=== PATIENT | female | born 1960 | race Caucasian/White ===

== ENCOUNTER 2017-11-29 13:19 | Emergency (ER) | payer BC, SELFPAY ==
[2017-11-29 13:26] VITALS: BP 108/59; PULSE 62; RESP 14; TEMP 36.3; O2SAT 94
[2017-11-29 13:44] LABS: RBC Urine None Seen (0-5/HPF)
[2017-11-29 13:54] LABS: Bacteria Urine Few (2-10); Culture Indicated Urine Specimen Cultured; Squamous Epithelial Cell Urine 1-5 /HPF; WBC Urine 10-30/HPF (0-5/HPF)
--- NOTE | 2017-11-29 14:17 | PC.NURSE ---
Reports with urination that she doesn't empty completely.
--- NOTE | 2017-11-29 14:18 | ED_ITS ---
HPI - Female Genitourinary <MARC Triplett - Last Filed: 11/29/17 21:50> General Chief complaint: Urogenital-Female Stated complaint: kidney infection Time Seen by Provider: 11/29/17 14:17 Source: patient Mode of arrival: ambulatory Limitations: no limitations History of Present Illness HPI Narrative: 57-year-old female here for complaint of having increased urinary frequency and urgency over the past week. She also reports she has some right flank pain. She thinks she may have had a low-grade fever over the past couple of days. She denies any dysuria. She reports she had 1 episode of vomiting yesterday. No abdominal pain. Positive p.o. intake. She denies any other concerns or complaints at this time. MD Complaint: UTI Related Data Home Medications Medication Instructions Recorded Confirmed atorvastatin 20 mg PO DAILY 11/29/17 11/29/17 sertraline [Zoloft] 100 mg PO DAILY 11/29/17 11/29/17 Previous Rx's Medication Instructions Recorded cephalexin 500 mg PO Q12H #14 cap 11/29/17 Allergies Allergy/AdvReac Type Severity Reaction Status Date / Time Miconazole AdvReac Unknown Uncoded 07/26/17 12:07 Review of Systems <MARC Triplett - Last Filed: 11/29/17 21:50> Constitutional Denies chills, Reports fever(s), Denies lethargy and Denies weakness Eyes Denies change in vision, Denies eye discharge, Denies irritation and Denies loss of vision ENT Ears, Nose, Mouth, and Throat: Denies change in voice, Denies neck pain and Denies sore throat Cardiovascular Denies chest pain, Denies irregular heart rhythm, Denies lightheadedness, Denies palpitations, Denies dyspnea, Denies dyspnea on exertion and Denies orthopnea Respiratory Denies cough, Denies dyspnea, Denies dyspnea on exertion and Denies wheezing Gastrointestinal Gastrointestinal: Denies abdominal pain, Denies change in bowel habits, Denies diarrhea, Denies nausea and Denies vomiting Genitourinary Reports urinary frequency and Reports urinary urgency Musculoskeletal Denies neck pain Integumentary/Breasts Denies pruritus, Denies erythema, Denies rash and Denies wounds Neurologic Denies confusion, Denies loss of vision and Denies weakness Psychiatric Denies anxiety, Denies confusion, Denies depression, Denies homicidal ideation and Denies suicidal ideation Endocrine Denies palpitations Hematologic/Lymphatic Denies easy bruising Allergic/Immunologic Denies wheezing Exam <MARC Triplett - Last Filed: 11/29/17 21:50> Initial Vital Signs Initial Vital Signs: Vital Signs Temperature 97.3 F L 11/29/17 13:26 Pulse Rate 62 11/29/17 13:26 Respiratory Rate 14 11/29/17 13:26 Blood Pressure 108/59 L 11/29/17 13:26 Pulse Oximetry 94 11/29/17 13:26 Const General: cooperative and well developed Nutritional Appearance: well nourished Orientation: alert, awake, oriented x3 and not confused HENMT Mouth: oral mucosae normal and moist mucous membranes Eyes Conjunctivae: conjunctivae normal Sclera: sclerae normal Pupils: PERRL EOM: EOM intact bilaterally Resp Effort & Inspection: normal respiratory effort, able to speak in complete sentences, no respiratory distress and no use of accessory muscles Auscultation: clear to auscultation bilaterally, no rales, no rhonchi and no wheezes Cardio Rate: regular rate Rhythm: regular rhythm Heart Sounds: no click, no gallops, no murmurs and no rubs GI Inspection: non-distended Palpation: soft, no hepatosplenomegaly, No guarding, No pulsatile mass and tender Auscultation: normal bowel sounds Other: Tender to the suprapubic region General: No CVA tenderness Skin General: no rashes or lesions noted, No jaundice and No petechiae Neuro General: alert, oriented x3, gait normal and no focal motor deficits Speech: speech normal <Joe Arechiga DO - Last Filed: 11/29/17 22:15> Initial Vital Signs Initial Vital Signs: Vital Signs Temperature 97.3 F L 11/29/17 13:26 Pulse Rate 62 11/29/17 13:26 Respiratory Rate 14 11/29/17 13:26 Blood Pressure 108/59 L 11/29/17 13:26 Pulse Oximetry 94 11/29/17 13:26 Course <MARC Triplett - Last Filed: 11/29/17 21:50> Orders Ordered: ED Orders 11/29/17 13:35 Urine Culture Stat Urine Microscopic Stat Vital Signs - 8 hr 11/29/17 14:45 Pulse Rate 57 L Respiratory Rate 20 Blood Pressure [Left Arm] 115/57 L Pulse Oximetry 97 <Joe Arechiga DO - Last Filed: 11/29/17 22:15> Orders Ordered: ED Orders 11/29/17 13:35 Urine Culture Stat Urine Microscopic Stat Vital Signs - 8 hr 11/29/17 14:45 Pulse Rate 57 L Respiratory Rate 20 Blood Pressure [Left Arm] 115/57 L Pulse Oximetry 97 MDM - Female Genitourinary <MARC Triplett - Last Filed: 11/29/17 21:50> Lab Data Lab Results 11/29/17 Range/Units 13:35 Urine RBC None seen (0-5/HPF) Urine WBC 10-30/hpf H (0-5/HPF) Ur Squamous Epith Cells 1-5 /hpf Urine Bacteria Few (2-10) H (None) Ur Culture Indicated? Specimen cultured Micro UA Comment Not Reportable MDM Narrative Medical decision making narrative: Urinalysis was positive for urinary tract infection. Due to subjective report of low-grade fever and flank pain will cover for starting pyelonephritis. She is placed on Keflex. Urine culture is pending. Follow up with primary care in the next couple days for re- evaluation. Plenty of fluids. For any worsening symptoms return to the emergency room. <Joe Arechiga DO - Last Filed: 11/29/17 22:15> Lab Data Lab Results 11/29/17 Range/Units 13:35 Urine RBC None seen (0-5/HPF) Urine WBC 10-30/hpf H (0-5/HPF) Ur Squamous Epith Cells 1-5 /hpf Urine Bacteria Few (2-10) H (None) Ur Culture Indicated? Specimen cultured Micro UA Comment Not Reportable Discharge Plan Departure Patient Disposition: Home, Self-Care Clinical Impression: Urinary tract infection Discharge Date/Time: 11/29/17 14:57 Interventions: ED Discharge Assessment Last Done: 11/29/17 14:57 Instructions: DI for Urinary Tract Infection (UTI) Activity Restrictions/Additional Instructions: Urinalysis is positive for urinary tract infection. You are placed on antibiotic called Keflex to cover for starting kidney infection use as directed. Plenty of fluids. [id number] Tylenol and/or Motrin as needed for any discomfort. Follow up with her primary care provider in the next couple days for re-evaluation. For any worsening symptoms return to the emergency room. Prescriptions: New cephalexin 500 mg capsule 500 mg PO Q12H Qty: 14 RF: 0 No Action atorvastatin 20 mg Tablet 20 mg PO DAILY RF: 0 sertraline [Zoloft] 100 mg Tablet 100 mg PO DAILY RF: 0 Referrals: [facility] [Provider Group] <Joe Arechiga DO - Last Filed: 11/29/17 22:15> Cosign ED Attending Mireya Attestation: I was available for consultation during this patient's emergency department encounter
[2017-11-29 14:45] VITALS: BP 115/57; PULSE 57; RESP 20; O2SAT 97
== END 2017-11-29 14:57 | disposition home or self-care (01) ==
PROVIDERS: Emergency Provider Nurse Practitioner Family
DX: N39.0 Urinary tract infection, site not specified (principal)
CPT/HCPCS: 81003; 81015; 87086; 99282

== ENCOUNTER 2018-06-28 15:29 | Emergency (ER) | payer OTHER, SELFPAY ==
[2018-06-28 15:32] VITALS: BP 130/64; PULSE 65; RESP 15; TEMP 36.9; O2SAT 96; BMI 43.7
--- NOTE | 2018-06-28 15:43 | ED.NAVMDI ---
HPI - Nausea/Vomiting/Diarrhea <MARC Triplett - Last Filed: 06/28/18 22:20> General Chief complaint: Nausea/Vomiting/Diarrhea Stated complaint: DIARRHEA, ABDOMINAL CRAMPING Time Seen by Provider: 06/28/18 15:42 Source: patient Mode of arrival: ambulatory Limitations: no limitations History of Present Illness HPI Narrative: 58-year-old female with history of depression and is a nonsmoker here for complaint of having abdominal pain into the lower abdomen bilateral signs for the last couple of days. She has also had some nausea and some diarrhea. She has been tolerating p.o. intake. No fevers no chills. She denies any stressors or relievers or symptoms. No trauma to abdomen. She denies any urinary symptoms. Last bowel movement was earlier today and was loose. She denies any contacts with similar symptoms. No other concerns or complaints at this timeframe. No flank pain. Related Data Home Medications Medication Instructions Recorded Confirmed atorvastatin 20 mg PO DAILY 11/29/17 11/29/17 sertraline [Zoloft] 100 mg PO DAILY 11/29/17 06/28/18 trazodone 100 mg PO DAILY 06/28/18 06/28/18 Previous Rx's Medication Instructions Recorded levofloxacin 750 mg PO DAILY #7 tab 06/28/18 Allergies Allergy/AdvReac Type Severity Reaction Status Date / Time No Known Drug Allergies Allergy Verified 06/28/18 15:32 Review of Systems <MARC Triplett - Last Filed: 06/28/18 22:20> Constitutional Denies chills, Denies fever(s), Denies lethargy and Denies weakness Eyes Denies change in vision, Denies eye discharge, Denies irritation and Denies loss of vision ENT Ears, Nose, Mouth, and Throat: Denies change in voice, Denies neck pain and Denies sore throat Cardiovascular Denies chest pain, Denies irregular heart rhythm, Denies lightheadedness, Denies palpitations, Denies dyspnea, Denies dyspnea on exertion and Denies orthopnea Respiratory Denies cough, Denies dyspnea, Denies dyspnea on exertion and Denies wheezing Gastrointestinal Gastrointestinal: Reports abdominal pain, Reports diarrhea and Reports nausea Genitourinary Denies hematuria, Denies flank pain, Denies urinary incontinence and Denies urinary urgency Musculoskeletal Denies neck pain Integumentary/Breasts Denies pruritus, Denies erythema, Denies rash and Denies wounds Neurologic Denies confusion, Denies loss of vision and Denies weakness Psychiatric Denies anxiety, Denies confusion, Denies depression, Denies homicidal ideation and Denies suicidal ideation Endocrine Denies palpitations Allergic/Immunologic Denies wheezing PFSH <MARC Triplett - Last Filed: 06/28/18 22:20> Medical History Hypercholesterolemia (Acute) Social History Smoking Status: Former smoker Exam <MARC Triplett - Last Filed: 06/28/18 22:20> Initial Vital Signs Initial Vital Signs: Vital Signs Temperature 98.5 F 06/28/18 15:32 Pulse Rate 65 06/28/18 15:32 Respiratory Rate 15 06/28/18 15:32 Blood Pressure 130/64 06/28/18 15:32 Pulse Oximetry 96 06/28/18 15:32 Const General: cooperative and well developed Nutritional Appearance: well nourished Orientation: alert, awake, oriented x3 and not confused HENDE Mouth: oral mucosae normal and moist mucous membranes Throat: posterior oropharynx normal Eyes Conjunctivae: conjunctivae normal Sclera: sclerae normal Pupils: PERRL EOM: EOM intact bilaterally Cardio Rate: regular rate Rhythm: regular rhythm Heart Sounds: no click, no gallops, no murmurs and no rubs Pulses: normal peripheral pulses GI Inspection: non-distended Palpation: soft, no hepatosplenomegaly, No guarding, No pulsatile mass and tender Auscultation: normal bowel sounds Other: Tenderness on palpation to right lower quadrant with some pain also to the left lower quadrant. General: No CVA tenderness Neuro General: alert, oriented x3, gait normal and no focal motor deficits Speech: speech normal <Joe Arechiga DO - Last Filed: 07/02/18 18:44> Initial Vital Signs Initial Vital Signs: Vital Signs Temperature 98.5 F 06/28/18 15:32 Pulse Rate 65 06/28/18 15:32 Respiratory Rate 15 06/28/18 15:32 Blood Pressure 130/64 06/28/18 15:32 Pulse Oximetry 96 06/28/18 15:32 Course <MARC Triplett - Last Filed: 06/28/18 22:20> Orders Ordered: Discontinued Medications Hydromorphone HCl (Dilaudid) 0.5 mg IV NOW ONE Stop: 06/28/18 16:02 Last Admin: 06/28/18 17:15 Dose: 0.5 mg Sodium Chloride (Normal Saline 0.9%) 1,000 mls @ 1,000 mls/hr IV BOLUS ONE Stop: 06/28/18 17:00 Last Infusion: 06/28/18 19:28 Dose: 1,000 mls/hr Admin: 06/28/18 17:15 Dose: 1,000 mls/hr Ondansetron HCl (Zofran) 4 mg IV NOW ONE Stop: 06/28/18 16:02 Last Admin: 06/28/18 17:15 Dose: 4 mg Vital Signs - 8 hr 06/28/18 15:32 06/28/18 18:11 06/28/18 20:12 Temperature 98.5 F 98.1 F Pulse Rate 65 62 54 L Respiratory Rate 15 18 16 Blood Pressure 130/64 Blood Pressure [Right Arm] 124/43 L 91/67 Pulse Oximetry 96 94 94 <Joe Arechiga DO - Last Filed: 07/02/18 18:44> Orders Ordered: Discontinued Medications Hydromorphone HCl (Dilaudid) 0.5 mg IV NOW ONE Stop: 06/28/18 16:02 Last Admin: 06/28/18 17:15 Dose: 0.5 mg Sodium Chloride (Normal Saline 0.9%) 1,000 mls @ 1,000 mls/hr IV BOLUS ONE Stop: 06/28/18 17:00 Last Infusion: 06/28/18 19:28 Dose: 1,000 mls/hr Admin: 06/28/18 17:15 Dose: 1,000 mls/hr Ondansetron HCl (Zofran) 4 mg IV NOW ONE Stop: 06/28/18 16:02 Last Admin: 06/28/18 17:15 Dose: 4 mg Vital Signs - 8 hr 06/28/18 15:32 06/28/18 18:11 06/28/18 20:12 Temperature 98.5 F 98.1 F Pulse Rate 65 62 54 L Respiratory Rate 15 18 16 Blood Pressure 130/64 Blood Pressure [Right Arm] 124/43 L 91/67 Pulse Oximetry 96 94 94 MDM - Nausea/Vomiting/Diarrhea <MARC Triplett - Last Filed: 06/28/18 22:20> Lab Data Result diagrams: 06/28/18 17:00 06/28/18 17:00 Lab Results 06/28/18 06/28/18 06/28/18 Range/Units 17:00 17:00 18:47 WBC 10.2 (4.5-11.0) X10^3/uL RBC 4.65 (4.0-5.2) X10^6/uL Hgb 13.8 (12.0-16.0) g/dL Hct 42.4 (36-46) % MCV 91.1 (80-100) fL MCH 29.6 (26-34) PG MCHC 32.5 (30-36) % RDW 14.6 (11.6-14.8) % Plt Count 217 (150-400) X10^3/uL Neut % (Auto) 67.5 (50-75) % Lymph % (Auto) 23.5 L (25-40) % [place] % (Auto) 5.6 (3-14) % Eos % (Auto) 2.7 (2-4) % Baso % (Auto) 0.7 (0-2) % Neut # (Auto) 6900 (1584-8259) /uL Lymph # (Auto) 2400 (2891-4689) /uL [place] # (Auto) 600 (0-900) /uL Eos # (Auto) 300 (0-450) /uL Baso # (Auto) 100 (0-100) /uL Sodium 141 (137-145) mmol/L Potassium 4.1 (3.4-5.1) mmol/L Chloride 106 (98-107) mmol/L Carbon Dioxide 25 (22-32) mmol/L BUN 21 H (7-17) mg/dL Creatinine 0.80 (0.52-1.04) mg/dL Estimated GFR > 60.0 (>60) mL/min BUN/Creatinine Ratio 26.3 H (6-22) Glucose 113 H (70-100) mg/dL Calcium 8.3 L (8.4-10.2) mg/dL Total Bilirubin 0.3 (0.2-1.3) mg/dL AST 29 (14-36) IU/L ALT 39 (9-52) IU/L Alkaline Phosphatase 89 (38-126) U/L Total Protein 7.5 (6.3-8.2) g/dL Albumin 4.1 (3.5-5.0) g/dL Globulin 3.4 (1.7-4.1) g/dL Albumin/Globulin Ratio 1.2 (1.0-2.8) Lipase 156 (23-300) U/L Urine RBC 1-5/hpf (0-5/HPF) Urine WBC 5-10/hpf H (0-5/HPF) Ur Squamous Epith Cells 1-5 /hpf Urine Bacteria Occasional (0-1) (None) Ur Culture Indicated? Specimen cultured Urine Dip Bedside Urine Glucose Negative Bedside Urine Bilirubin - Negative Bedside Urine Ketone - Negative Urine Specific [place] 1.015 Bedside Urine Occult Blood - Negative Bedside Urine pH 6.0 Bedside Urine Protein - Negative Bedside Urine Urobilinogen - Negative Bedside Urine Nitrite - Negative Bedside Urine Leukocytes +++ [address] scan - abdomen: Radiologist's impression: [place] [address] CT Scan Report Signed Patient: Brian Hill LMR#: [id number] : [id number]:[id number] Age/Sex: 58 / FDate of Service: 06/28/18 Loc: ED Accession Number: [id number] Procedure: CT abdomen pelvis w con Ordering Provider: Valentín Lewis PROCEDURE: CT ABDOMEN PELVIS W CON INDICATIONS: Pain right lower quadrant TECHNIQUE: After the administration of intravenous contrast, 5 mm thick sections acquired from the diaphragm to the symphysis. 5 mm coronal and sagittal reformats were acquired. For radiation dose reduction, the following was used: automated exposure control, adjustment of mA and/or kV according to patient size. COMPARISON: [facility], CT, ABDOMEN/PELVIS WITH CONTRAST, 08/28/2008, 10:56. FINDINGS: Image quality: Excellent. ABDOMEN: Lung bases: There is mild dependent atelectasis bilaterally. Heart size is normal. A small hiatal hernia is present. Solid organs: Evaluation of the liver demonstrates no focal hepatic lesions. The gallbladder surgically absent. Biliary system is mildly dilated without calcified stones. Findings may reflect sequelae of prior cholecystectomy. Pancreas enhances normally without pancreatic duct dilatation or discrete mass lesion. Spleen is normal in size and enhancement. No adrenal nodules. Kidneys demonstrate normal size and enhancement, without hydronephrosis. Peritoneum and bowel: There are postsurgical changes with multiple bowel sutures demonstrated in the abdomen status post partial resection of small and large bowel loops. Bowel loops demonstrate normal wall thickness and caliber. The appendix is surgically absent. There is colonic diverticulosis without acute diverticulitis. No free fluid or air. Nodes and vessels: No retroperitoneal or mesenteric adenopathy by size criteria. Aorta and inferior vena cava are normal in size. Miscellaneous: There is a midline ventral hernia containing multiple loops of small bowel without evidence of bowel obstruction or strangulation. The abdominal wall defect measures approximately 8.1 x 7.8 cm. PELVIS: Genitourinary: Bladder wall thickness is normal. There is a curvilinear cystic structure within the left adnexa suggestive of hydrosalpinx. This measures approximately 5.5 cm in transverse dimension by 3.3 cm in anteroposterior dimension by 2.5 cm in craniocaudal dimension. Miscellaneous: No inguinal hernias or adenopathy. Bones: No suspicious bony lesions. No vertebral body compression fractures. IMPRESSION: 1. Postsurgical changes status post prior partial bowel resection with multiple surgical sutures demonstrated in the right lower quadrant. No evidence of obstruction, anastomotic leak, or acute inflammatory changes. 2. Large ventral abdominal hernia containing multiple small bowel loops. No evidence of bowel obstruction or strangulation. 3. Colonic diverticulosis without acute diverticulitis. 4. Curvilinear cystic structure in the left adnexa suggestive of hydrosalpinx. Further evaluation may be obtained with a pelvic ultrasound if clinically indicated. Dictated by: Tiago Ortiz M.D. on 06/28/2018 at 16:59 Approved by: Tiago Ortiz M.D. on 06/28/2018 at 17:07 Pelvic ultrasound : Radiologist's impression: [address] [address] Ultrasound Report Signed Patient: Brian Hill LMR#: [id number] : 1Acct:[id number] Age/Sex: 58 / FDate of Service: 06/28/18 Loc: ED Accession Number: [id number] Procedure: US pelvic complete Ordering Provider: Valentín Lewis PROCEDURE: US PELVIC COMPLETE INDICATIONS: Pain lower abdomen TECHNIQUE: Real-time scanning was performed of the pelvic organs, with image documentation. Additional endovaginal scanning was necessary due to incomplete visualization of the adnexal and endometrial structures by transabdominal scanning. COMPARISON: None. FINDINGS: Transabdominal scanning: Limited scanning through the kidneys shows no hydronephrosis. No pathologic free abdominal or pelvic fluid. Endovaginal scanning: Uterus: Uterus is normal in size at 8.4 x 3.6 x 4.4 cm. The endometrium measures 3.0 mm in combined thickness. There is a 1.3 x 0.9 x 1.0 cm hypoechoic lesion in the lower uterine segment. No definite internal vascularity associated lesion. Lesion may represent a fibroid or small polyp, however early neoplastic process cannot be excluded. Ovaries: Adnexa not visualized and cannot be evaluated. There is a 2.6 cm tubular, cystic structure in the expected region left adnexa which may represent fluid filled loop of bowel or left fallopian tube. IMPRESSION: 1. 1.3 x 0.9 x 1.0 hypoechoic mass in the lower uterine segment. Lesion may represent small polyp or fibroid, however a neoplastic process cannot be excluded recommend gynecology consultation. 2. 2.6 cm cystic lesion with tubular contours in the expected region of left adnexa which may represent fluid filled loop of bowel or hydrosalpinx. 3. Adnexa are not definitely visualized and cannot be evaluated. Dictated by: Leticia Blanca MD, PhD on 06/28/2018 at 20:17 Approved by: Leticia Blanca MD, PhD on 06/28/2018 at 20:21 [facility] Narrative Medical decision making narrative: CT scan of the abdomen shows diverticulosis with no acute diverticulitis. The does show that there is a curved cystic structure to the left adnexa area suggestive of a hydrosalpinx with request for pelvic ultrasound. CT also showed multiple ventral abdominal hernias and containing multiple small bowel loops no evidence of bowel obstruction or strangulation was seen. Pelvic ultrasound was obtained and shows a 1.3 cm mass to the lower uterine segment which may represent polyp fibroid or neoplastic process. There is a 2.6 cm cystic lesion with 2 her contours to the left adnexa which could represent a fluid filled loop of bowel or a hydrosalpinx. She is referred to assembler adjuster for further evaluation. [id number] ibuprofen as needed for any discomfort. Differential of her abdominal pain and diarrhea May caused by a viral illness with the above findings being incidental. Plenty of fluids. Follow up with primary care provider. Urinalysis indicates urinary tract infection. She is placed on Levaquin. Follow up with assembler adjuster. Return emergency room for any worsening symptoms. <Joe Arechiga, DO - Last Filed: 07/02/18 18:44> Lab Data Lab Results 06/28/18 06/28/18 06/28/18 Range/Units 17:00 17:00 18:47 WBC 10.2 (4.5-11.0) X10^3/uL RBC 4.65 (4.0-5.2) X10^6/uL Hgb 13.8 (12.0-16.0) g/dL Hct 42.4 (36-46) % MCV 91.1 (80-100) fL MCH 29.6 (26-34) PG MCHC 32.5 (30-36) % RDW 14.6 (11.6-14.8) % Plt Count 217 (150-400) X10^3/uL Neut % (Auto) 67.5 (50-75) % Lymph % (Auto) 23.5 L (25-40) % [place] % (Auto) 5.6 (3-14) % Eos % (Auto) 2.7 (2-4) % Baso % (Auto) 0.7 (0-2) % Neut # (Auto) 6900 (9514-8766) /uL Lymph # (Auto) 2400 (8446-8032) /uL [place] # (Auto) 600 (0-900) /uL Eos # (Auto) 300 (0-450) /uL Baso # (Auto) 100 (0-100) /uL Sodium 141 (137-145) mmol/L Potassium 4.1 (3.4-5.1) mmol/L Chloride 106 (98-107) mmol/L Carbon Dioxide 25 (22-32) mmol/L BUN 21 H (7-17) mg/dL Creatinine 0.80 (0.52-1.04) mg/dL Estimated GFR > 60.0 (>60) mL/min BUN/Creatinine Ratio 26.3 H (6-22) Glucose 113 H (70-100) mg/dL Calcium 8.3 L (8.4-10.2) mg/dL Total Bilirubin 0.3 (0.2-1.3) mg/dL AST 29 (14-36) IU/L ALT 39 (9-52) IU/L Alkaline Phosphatase 89 (38-126) U/L Total Protein 7.5 (6.3-8.2) g/dL Albumin 4.1 (3.5-5.0) g/dL Globulin 3.4 (1.7-4.1) g/dL Albumin/Globulin Ratio 1.2 (1.0-2.8) Lipase 156 (23-300) U/L Urine RBC 1-5/hpf (0-5/HPF) Urine WBC 5-10/hpf H (0-5/HPF) Ur Squamous Epith Cells 1-5 /hpf Urine Bacteria Occasional (0-1) (None) Ur Culture Indicated? Specimen cultured Urine Dip Bedside Urine Glucose Negative Bedside Urine Bilirubin - Negative Bedside Urine Ketone - Negative Urine Specific [place] 1.015 Bedside Urine Occult Blood - Negative Bedside Urine pH 6.0 Bedside Urine Protein - Negative Bedside Urine Urobilinogen - Negative Bedside Urine Nitrite - Negative Bedside Urine Leukocytes +++ 500 Esterase Discharge Plan Departure Patient Disposition: Home Clinical Impression: Abdominal pain Qualifiers: Abdominal location: generalized Qualified Code(s): R10.84 - Generalized abdominal pain Urinary tract infection Qualifiers: Urinary tract infection type: acute cystitis Hematuria presence: with hematuria Qualified Code(s): N30.01 - Acute cystitis with hematuria Discharge Date/Time: 06/28/18 20:14 Interventions: ED Discharge Assessment Last Done: 06/28/18 20:18 Instructions: DI for Abdominal Pain-Adult Activity Restrictions/Additional Instructions: CT of the abdomen was obtained and shows ventral hernias containing small bowel loops with no signs of strangulation. CT also shows mass to the left ovary area. Pelvic ultrasound was then obtained to for further look and shows a 1 cm mass to the lower uterine segment that could be a fibroid or small polyp however worst case scenario may be cancer. Recommend close follow-up with assembler adjuster for further evaluation. Ultrasound was not able to visualize the left ovarian area well so was not able to further identify the tubular the mass to the left ovarian area may represent a fluid filled loop of bowel or some swelling to the left ovary. Again follow up with assembler adjuster. Differential diagnosis of her diarrhea and abdominal pain may be due to viral causes and the the above are incidental findings or maybe director responsible for your abdominal pain. Urinalysis indicates urinary tract infection UR placed on antibiotic called levofloxacin use as directed. Use [id number] ibuprofen as needed for any discomfort. Follow up with her primary care provider. Prescriptions: New levofloxacin 750 mg tablet 750 mg PO DAILY Qty: 7 RF: 0 No Action atorvastatin 20 mg Tablet 20 mg PO DAILY RF: 0 sertraline [Zoloft] 100 mg Tablet 100 mg PO DAILY RF: 0 trazodone 100 mg Tablet 100 mg PO DAILY RF: 0 Referrals: Blane Auguste MD [Physician] - <Joe Arechiga DO - Last Filed: 07/02/18 18:44> Cosign ED Attending Mireya Attestation: I was available for consultation during this patient's emergency department encounter
--- NOTE | 2018-06-28 16:02 | DI.CT.S_ITS ---
PROCEDURE: CT ABDOMEN PELVIS W CON INDICATIONS: Pain right lower quadrant TECHNIQUE: After the administration of intravenous contrast, 5 mm thick sections acquired from the diaphragm to the symphysis. 5 mm coronal and sagittal reformats were acquired. For radiation dose reduction, the following was used: automated exposure control, adjustment of mA and/or kV according to patient size. COMPARISON: [facility], CT, ABDOMEN/PELVIS WITH CONTRAST, 08/28/2008, 10:56. FINDINGS: Image quality: Excellent. ABDOMEN: Lung bases: There is mild dependent atelectasis bilaterally. Heart size is normal. A small hiatal hernia is present. Solid organs: Evaluation of the liver demonstrates no focal hepatic lesions. The gallbladder surgically absent. Biliary system is mildly dilated without calcified stones. Findings may reflect sequelae of prior cholecystectomy. Pancreas enhances normally without pancreatic duct dilatation or discrete mass lesion. Spleen is normal in size and enhancement. No adrenal nodules. Kidneys demonstrate normal size and enhancement, without hydronephrosis. Peritoneum and bowel: There are postsurgical changes with multiple bowel sutures demonstrated in the abdomen status post partial resection of small and large bowel loops. Bowel loops demonstrate normal wall thickness and caliber. The appendix is surgically absent. There is colonic diverticulosis without acute diverticulitis. No free fluid or air. Nodes and vessels: No retroperitoneal or mesenteric adenopathy by size criteria. Aorta and inferior vena cava are normal in size. Miscellaneous: There is a midline ventral hernia containing multiple loops of small bowel without evidence of bowel obstruction or strangulation. The abdominal wall defect measures approximately 8.1 x 7.8 cm. PELVIS: Genitourinary: Bladder wall thickness is normal. There is a curvilinear cystic structure within the left adnexa suggestive of hydrosalpinx. This measures approximately 5.5 cm in transverse dimension by 3.3 cm in anteroposterior dimension by 2.5 cm in craniocaudal dimension. Miscellaneous: No inguinal hernias or adenopathy. Bones: No suspicious bony lesions. No vertebral body compression fractures. IMPRESSION: 1. Postsurgical changes status post prior partial bowel resection with multiple surgical sutures demonstrated in the right lower quadrant. No evidence of obstruction, anastomotic leak, or acute inflammatory changes. 2. Large ventral abdominal hernia containing multiple small bowel loops. No evidence of bowel obstruction or strangulation. 3. Colonic diverticulosis without acute diverticulitis. 4. Curvilinear cystic structure in the left adnexa suggestive of hydrosalpinx. Further evaluation may be obtained with a pelvic ultrasound if clinically indicated. Dictated by: Tiago Ortiz M.D. on 06/28/2018 at 16:59 Approved by: Tiago Ortiz M.D. on 06/28/2018 at 17:07
[2018-06-28 17:12] LABS: Add Manual Diff / Slide Review NO; Basophils Absolute Auto 100 /uL (0-100); Basophils Percent Auto 0.7 % (0-2); Eosinophils Absolute Auto 300 /uL (0-450); Eosinophils Percent Auto 2.7 % (2-4); Hematocrit 42.4 % (36-46); Hemoglobin 13.8 g/dL (12.0-16.0); Lymphocytes Absolute Auto 2400 /uL (1100-4500); Lymphocytes Percent Auto 23.5 % (25-40); Mean Corpuscular HGB Conc 32.5 % (30-36); Mean Corpuscular Hemoglobin 29.6 PG (26-34); Mean Corpuscular Volume 91.1 fL (80-100); Monocytes Absolute Auto 600 /uL (0-900); Monocytes Percent Auto 5.6 % (3-14); Neutrophils Absolute Auto 6900 /uL (1500-7000); Neutrophils Percent Auto 67.5 % (50-75); Platelet Count 217 X10^3/uL (150-400); Red Blood Cell Count 4.65 X10^6/uL (4.0-5.2); Red Cell Distribution Width 14.6 % (11.6-14.8); White Blood Cell Count 10.2 X10^3/uL (4.5-11.0)
[2018-06-28] MEDS: HYDROMORPHONE 1 MG INJ 0.5 MG IV (17:15)
[2018-06-28] MEDS: SODIUM CHLORIDE 0.9% 1,000 ML 1000 ML IV (17:15)
[2018-06-28] MEDS: ONDANSETRON 4 MG/2 ML INJ IV (17:15)
[2018-06-28 17:28] LABS: Alanine Aminotransferase 39 IU/L (9-52); Albumin 4.1 g/dL (3.5-5.0); Albumin Globulin Ratio 1.2 (1.0-2.8); Alkaline Phosphatase 89 U/L (38-126); Aspartate Aminotransferase 29 IU/L (14-36); BUN Creatinine Ratio 26.3 (6-22); Bilirubin Total 0.3 mg/dL (0.2-1.3); Blood Urea Nitrogen 21 mg/dL (7-17); Calcium 8.3 mg/dL (8.4-10.2); Carbon Dioxide 25 mmol/L (22-32); Chloride 106 mmol/L (98-107); Estimated Glomerular Filt Rate > 60.0 mL/min (>60); Globulin 3.4 g/dL (1.7-4.1); Glucose 113 mg/dL (70-100); HEMOLYSIS 20 (0-50); Lipase 156 U/L (23-300); Potassium 4.1 mmol/L (3.4-5.1); Sodium 141 mmol/L (137-145); Total Protein 7.5 g/dL (6.3-8.2)
--- NOTE | 2018-06-28 18:09 | PC.NURSE ---
pt reports, diarrhea for 2 days, 3 episodes in the last 24 hours, low fever, unmeasured at home, felt cold and almost narcoleptic, with nausea, no vomiting, with indigestions. denies trauma , denies traveling outside [place] denies antibiotics treatment. hx of diverticulitis, with altaf drain and ostomy, reversed. cholecystectomy.
[2018-06-28 18:11] VITALS: BP 124/43; PULSE 62; RESP 18; O2SAT 94
--- NOTE | 2018-06-28 18:13 | DI.US.S_ITS ---
PROCEDURE: US PELVIC COMPLETE INDICATIONS: Pain lower abdomen TECHNIQUE: Real-time scanning was performed of the pelvic organs, with image documentation. Additional endovaginal scanning was necessary due to incomplete visualization of the adnexal and endometrial structures by transabdominal scanning. COMPARISON: None. FINDINGS: Transabdominal scanning: Limited scanning through the kidneys shows no hydronephrosis. No pathologic free abdominal or pelvic fluid. Endovaginal scanning: Uterus: Uterus is normal in size at 8.4 x 3.6 x 4.4 cm. The endometrium measures 3.0 mm in combined thickness. There is a 1.3 x 0.9 x 1.0 cm hypoechoic lesion in the lower uterine segment. No definite internal vascularity associated lesion. Lesion may represent a fibroid or small polyp, however early neoplastic process cannot be excluded. Ovaries: Adnexa not visualized and cannot be evaluated. There is a 2.6 cm tubular, cystic structure in the expected region left adnexa which may represent fluid filled loop of bowel or left fallopian tube. IMPRESSION: 1. 1.3 x 0.9 x 1.0 hypoechoic mass in the lower uterine segment. Lesion may represent small polyp or fibroid, however a neoplastic process cannot be excluded recommend gynecology consultation. 2. 2.6 cm cystic lesion with tubular contours in the expected region of left adnexa which may represent fluid filled loop of bowel or hydrosalpinx. 3. Adnexa are not definitely visualized and cannot be evaluated. Dictated by: Leticia Blanca MD, PhD on 06/28/2018 at 20:17 Approved by: Leticia Blanca MD, PhD on 06/28/2018 at 20:21
[2018-06-28 19:26] LABS: Bacteria Urine Occasional (0-1); Culture Indicated Urine Specimen Cultured; RBC Urine 1-5/HPF (0-5/HPF); Squamous Epithelial Cell Urine 1-5 /HPF; WBC Urine 5-10/HPF (0-5/HPF)
[2018-06-28 20:12] VITALS: BP 91/67; PULSE 54; RESP 16; TEMP 36.7; O2SAT 94
== END 2018-06-28 20:14 | disposition home or self-care (01) ==
PROVIDERS: Emergency Provider Nurse Practitioner Family
DX: R10.84 Generalized abdominal pain (principal); N30.01 Acute cystitis with hematuria
CPT/HCPCS: 36591; 74177; 76830; 76856; 80053; 81003; 81015; 83690; 85025; 87086; 96361; 96374; 96375; 99283; 99285; J1170; J2405

== ENCOUNTER → 2018-07-10 09:47 | Outpatient (CLI) | payer OTHER, SELFPAY ==
[2018-07-10 12:00] LABS: Cancer Antigen 125 < 6 U/mL (0-35)
== END ==
LOC: LAB 09:48
PROVIDERS: PCP Physician Assistant; Visit Provider Obstetrics & Gynecology
DX: N94.9 Unspecified condition associated with female genital organs and menstrual cycle (principal)
CPT/HCPCS: 36415; 86304

== ENCOUNTER 2018-07-27 20:47 | Emergency (ER) | payer OTHER, SELFPAY ==
[2018-07-27 20:50] VITALS: BP 144/79; PULSE 64; RESP 18; TEMP 36.6; O2SAT 98
--- NOTE | 2018-07-27 20:54 | ED_ITS ---
HPI - Female Genitourinary <Julieta Sparks PA-C - Last Filed: 07/28/18 15:19> General Chief complaint: Urogenital-Female Stated complaint: Kidney infection Time Seen by Provider: 07/27/18 20:50 Source: patient Mode of arrival: ambulatory Limitations: no limitations History of Present Illness HPI Narrative: This 58-year-old female comes in due to concern for recurrent kidney infection. She states that she has had these in the past and this feels similar. She states she has not had any urinary burning, frequency, urgency, or hematuria, however she has had increasing right flank pain (she has some chronic pain there but worse in the last few days), along with nausea. She states that she has not had fever or vomiting. Her urine has looked somewhat cloudy. She states this presents similarly to previous kidney infections and wants to make sure she gets this treated early as she does have bariatric surgery scheduled. She was treated here about a month ago with Levaquin and does not feel like symptoms quite fully resolved. Related Data Home Medications Medication Instructions Recorded Confirmed atorvastatin 20 mg PO DAILY 11/29/17 11/29/17 sertraline [Zoloft] 100 mg PO DAILY 11/29/17 06/28/18 trazodone 100 mg PO DAILY 06/28/18 06/28/18 Previous Rx's Medication Instructions Recorded levofloxacin 750 mg PO DAILY #7 tab 06/28/18 lidocaine [Lidoderm] 2 patch TOP Q24H #30 each 07/27/18 Allergies Allergy/AdvReac Type Severity Reaction Status Date / Time levofloxacin AdvReac Severe Agitated Verified 07/27/18 20:53 miconazole [From Monistat 7] AdvReac rash Verified 07/10/18 09:06 Review of Systems <Julieta Sparks PA-C - Last Filed: 07/28/18 15:19> Review of Systems ROS Unobtainable: All systems reviewed & are unremarkable except as noted in HPI and below PFSH <Julieta Sparks PA-C - Last Filed: 07/28/18 15:19> Medical History (Updated 07/27/18 @ 21:50 by Julieta Sparks PA-C) Hypercholesterolemia (Chronic) Depression (Chronic) Status post tubal ligation (Resolved) Surgical History (Updated 07/27/18 @ 21:08 by Julieta Sparks PA-C) Perforated diverticulum (Resolved) Status post cholecystectomy (Resolved) Status post colon resection (Resolved) Social History Smoking Status: Former smoker Social History Smoking Status: Former smoker Exam <Julieta Sparks PA-C - Last Filed: 07/28/18 15:19> Narrative Exam Narrative: GENERAL APPEARANCE: Patient sitting comfortably, in no distress. LUNGS: Clear to auscultation bilaterally. HEART: Rate and rhythm regular without murmur, normal S1 and S2, no S3 or S4. ABDOMEN: Soft, ND, +BS x 4 quadrants, no CVAT. mild tenderness along the right upper quadrant, more tenderness at the right flank/CVA, no tenderness elsewhere. No guarding or rebound DERMATOLOGIC: No exanthem Initial Vital Signs Initial Vital Signs: Vital Signs Temperature 97.8 F 07/27/18 20:50 Pulse Rate 64 07/27/18 20:50 Respiratory Rate 18 07/27/18 20:50 Blood Pressure 144/79 H 07/27/18 20:50 Pulse Oximetry 98 07/27/18 20:50 <Whitney Olson DO - Last Filed: 08/01/18 19:32> Initial Vital Signs Initial Vital Signs: Vital Signs Temperature 97.8 F 07/27/18 20:50 Pulse Rate 64 07/27/18 20:50 Respiratory Rate 18 07/27/18 20:50 Blood Pressure 144/79 H 07/27/18 20:50 Pulse Oximetry 98 07/27/18 20:50 Course <Julieta Sparks PA-C - Last Filed: 07/28/18 15:19> Additional Information: Reviewed findings with patient. She had the symptoms last month when she had imaging studies done. She states that she does not feel particularly poorly today, was just convince that she had a kidney infection which is not resolving. Review lab and urine findings with her and in discussion with her, she states that she does have sciatica, and we discussed that this could be potentially musculoskeletal pain related to that. After discussion she prefers outpatient follow-up and will see her PCP next week to talk about further studies and potential referral. Over the weekend will try anti-inflammatory as well as muscle relaxant if needed to see if this is helpful and related to her PCP. She agreed to return if any acutely worsening symptoms in the interim. Orders Ordered: Discontinued Medications Hydrocodone Bitart/Acetaminophen (Vicodin Prepack) 1 bottle MISC SEEINSTR ONE Stop: 07/27/18 21:51 Last Admin: 07/27/18 22:08 Dose: 1 bottle Ketorolac Tromethamine (Toradol) 60 mg IM NOW ONE Stop: 07/27/18 21:27 Last Admin: 07/27/18 21:37 Dose: 60 mg Ondansetron HCl (Zofran Odt Prepack) 1 bottle MISC SEEINSTR ONE Stop: 07/27/18 21:51 Last Admin: 07/27/18 22:08 Dose: 1 bottle Vital Signs - 8 hr 07/27/18 20:50 Temperature 97.8 F Pulse Rate 64 Respiratory Rate 18 Blood Pressure 144/79 H Pulse Oximetry 98 <Whitney Olson DO - Last Filed: 08/01/18 19:32> Orders Ordered: Discontinued Medications Hydrocodone Bitart/Acetaminophen (Vicodin Prepack) 1 bottle MISC SEEINSTR ONE Stop: 07/27/18 21:51 Last Admin: 07/27/18 22:08 Dose: 1 bottle Ketorolac Tromethamine (Toradol) 60 mg IM NOW ONE Stop: 07/27/18 21:27 Last Admin: 07/27/18 21:37 Dose: 60 mg Ondansetron HCl (Zofran Odt Prepack) 1 bottle MISC SEEINSTR ONE Stop: 07/27/18 21:51 Last Admin: 07/27/18 22:08 Dose: 1 bottle Vital Signs - 8 hr 07/27/18 20:50 Temperature 97.8 F Pulse Rate 64 Respiratory Rate 18 Blood Pressure 144/79 H Pulse Oximetry 98 MDM - Female Genitourinary <Julieta Sparks PA-C - Last Filed: 07/28/18 15:19> Lab Data Result diagrams: 07/27/18 21:10 07/27/18 21:10 Lab Results 07/27/18 07/27/18 07/27/18 Range/Units 20:50 21:10 21:10 WBC 12.9 H (4.5-11.0) X10^3/uL RBC 4.68 (4.0-5.2) X10^6/uL Hgb 14.1 (12.0-16.0) g/dL Hct 42.1 (36-46) % MCV 89.8 (80-100) fL MCH 30.0 (26-34) PG MCHC 33.4 (30-36) % RDW 14.0 (11.6-14.8) % Plt Count 211 (150-400) X10^3/uL Neut % (Auto) 62.7 (50-75) % Lymph % (Auto) 27.9 (25-40) % [place] % (Auto) 6.3 (3-14) % Eos % (Auto) 2.3 (2-4) % Baso % (Auto) 0.8 (0-2) % Neut # (Auto) 8100 H (6348-7042) /uL Lymph # (Auto) 3600 (5821-5929) /uL [place] # (Auto) 800 (0-900) /uL Eos # (Auto) 300 (0-450) /uL Baso # (Auto) 100 (0-100) /uL Sodium 139 (137-145) mmol/L Potassium 4.0 (3.4-5.1) mmol/L Chloride 100 (98-107) mmol/L Carbon Dioxide 30 (22-32) mmol/L BUN 21 H (7-17) mg/dL Creatinine 0.80 (0.52-1.04) mg/dL Estimated GFR > 60.0 (>60) mL/min BUN/Creatinine Ratio 26.3 H (6-22) Glucose 106 H (70-100) mg/dL Calcium 9.4 (8.4-10.2) mg/dL Total Bilirubin 0.4 (0.2-1.3) mg/dL AST 28 (14-36) IU/L ALT 28 (9-52) IU/L Alkaline Phosphatase 84 (38-126) U/L Total Protein 7.9 (6.3-8.2) g/dL Albumin 4.4 (3.5-5.0) g/dL Globulin 3.5 (1.7-4.1) g/dL Albumin/Globulin Ratio 1.3 (1.0-2.8) Lipase 149 (23-300) U/L Urine RBC 1-5/hpf (0-5/HPF) Urine WBC 5-10/hpf H (0-5/HPF) Ur Squamous Epith Cells 5-10 /hpf H (0-5/HPF) Urine Bacteria None seen (None) Ur Culture Indicated? Cult not indicated Urine Dip Bedside Urine Glucose Negative Bedside Urine Bilirubin - Negative Bedside Urine Ketone - Negative Urine Specific [place] 1.025 Bedside Urine Occult Blood +/- Bedside Urine pH 6.0 Bedside Urine Protein +/- 15 Bedside Urine Urobilinogen +/- 1mg Bedside Urine Nitrite - Negative Bedside Urine Leukocytes +++ 500 Esterase <Whitney Olson, DO - Last Filed: 08/01/18 19:32> Lab Data Lab Results 07/27/18 07/27/18 07/27/18 Range/Units 20:50 21:10 21:10 WBC 12.9 H (4.5-11.0) X10^3/uL RBC 4.68 (4.0-5.2) X10^6/uL Hgb 14.1 (12.0-16.0) g/dL Hct 42.1 (36-46) % MCV 89.8 (80-100) fL MCH 30.0 (26-34) PG MCHC 33.4 (30-36) % RDW 14.0 (11.6-14.8) % Plt Count 211 (150-400) X10^3/uL Neut % (Auto) 62.7 (50-75) % Lymph % (Auto) 27.9 (25-40) % [place] % (Auto) 6.3 (3-14) % Eos % (Auto) 2.3 (2-4) % Baso % (Auto) 0.8 (0-2) % Neut # (Auto) 8100 H (0399-7528) /uL Lymph # (Auto) 3600 (7178-7286) /uL [place] # (Auto) 800 (0-900) /uL Eos # (Auto) 300 (0-450) /uL Baso # (Auto) 100 (0-100) /uL Sodium 139 (137-145) mmol/L Potassium 4.0 (3.4-5.1) mmol/L Chloride 100 (98-107) mmol/L Carbon Dioxide 30 (22-32) mmol/L BUN 21 H (7-17) mg/dL Creatinine 0.80 (0.52-1.04) mg/dL Estimated GFR > 60.0 (>60) mL/min BUN/Creatinine Ratio 26.3 H (6-22) Glucose 106 H (70-100) mg/dL Calcium 9.4 (8.4-10.2) mg/dL Total Bilirubin 0.4 (0.2-1.3) mg/dL AST 28 (14-36) IU/L ALT 28 (9-52) IU/L Alkaline Phosphatase 84 (38-126) U/L Total Protein 7.9 (6.3-8.2) g/dL Albumin 4.4 (3.5-5.0) g/dL Globulin 3.5 (1.7-4.1) g/dL Albumin/Globulin Ratio 1.3 (1.0-2.8) Lipase 149 (23-300) U/L Urine RBC 1-5/hpf (0-5/HPF) Urine WBC 5-10/hpf H (0-5/HPF) Ur Squamous Epith Cells 5-10 /hpf H (0-5/HPF) Urine Bacteria None seen (None) Ur Culture Indicated? Cult not indicated Urine Dip Bedside Urine Glucose Negative Bedside Urine Bilirubin - Negative Bedside Urine Ketone - Negative Urine Specific [place] 1.025 Bedside Urine Occult Blood +/- Bedside Urine pH 6.0 Bedside Urine Protein +/- 15 Bedside Urine Urobilinogen +/- 1mg Bedside Urine Nitrite - Negative Bedside Urine Leukocytes +++ 500 Esterase Discharge Plan Departure Patient Disposition: Home Clinical Impression: Right flank pain Discharge Date/Time: 07/27/18 22:11 Interventions: ED Discharge Assessment Last Done: 07/27/18 22:08 Instructions: DI for Flank Pain Activity Restrictions/Additional Instructions: As we talked about, please return if you have any acutely worsening pain or new symptoms such as prolonged vomiting or fever. Otherwise, we have given you and injectable anti-inflammatory pain medicine tonight to see if this is helpful for your pain. Please try taking 1-2 Aleve twice daily over the weekend to determine whether this is helpful as well. I have also prescribed topical pain patches for you to try. In addition, we have given you a few nausea and pain pills to take over the weekend if you need them (remember that the hydrocodone/acetaminophen can make you sleepy and not to drive with it if you do take it). Since this pain is fairly chronic, and you have some nighttime vomiting, you do need further testing. The scan that was done last month did not show any abnormalities of your urinary system or kidneys, and there was not bacteria in her urine today. A trial of the anti-inflammatory medicine and pain patches this weekend may help determine whether it is more in the musculoskeletal system. You may need more specialized testing of your biliary (gallbladder) system even though you have had your gallbladder removed. Please call [facility] 1st thing on Monday morning and let them know you were seen in the emergency room and we advised you to follow up early next week. Prescriptions: New lidocaine [Lidoderm] 5 % adhesive patch,medicated 2 patch TOP Q24H Qty: 30 RF: 0 No Action atorvastatin 20 mg Tablet 20 mg PO DAILY RF: 0 sertraline [Zoloft] 100 mg Tablet 100 mg PO DAILY RF: 0 trazodone 100 mg Tablet 100 mg PO DAILY RF: 0 levofloxacin 750 mg tablet 750 mg PO DAILY Qty: 7 RF: 0 Referrals: Chanell Flaherty PA-C [Primary Care Provider] - <Whitney Olson DO - Last Filed: 08/01/18 19:32> [facility]ya Attestation: I was immediately available in the [facility] tment for consultation. Documentation has been reviewed. I agree with assessment and plan.
[2018-07-27 21:02] LABS: Bacteria Urine None Seen
[2018-07-27 21:16] LABS: Culture Indicated Urine Cult Not Indicated; RBC Urine 1-5/HPF (0-5/HPF); Squamous Epithelial Cell Urine 5-10 /HPF (0-5/HPF); WBC Urine 5-10/HPF (0-5/HPF)
[2018-07-27 21:20] LABS: Add Manual Diff / Slide Review NO; Basophils Absolute Auto 100 /uL (0-100); Basophils Percent Auto 0.8 % (0-2); Eosinophils Absolute Auto 300 /uL (0-450); Eosinophils Percent Auto 2.3 % (2-4); Hematocrit 42.1 % (36-46); Hemoglobin 14.1 g/dL (12.0-16.0); Lymphocytes Absolute Auto 3600 /uL (1100-4500); Lymphocytes Percent Auto 27.9 % (25-40); Mean Corpuscular HGB Conc 33.4 % (30-36); Mean Corpuscular Volume 89.8 fL (80-100); Monocytes Absolute Auto 800 /uL (0-900); Monocytes Percent Auto 6.3 % (3-14); Neutrophils Absolute Auto 8100 /uL (1500-7000); Neutrophils Percent Auto 62.7 % (50-75); Platelet Count 211 X10^3/uL (150-400); Red Blood Cell Count 4.68 X10^6/uL (4.0-5.2); White Blood Cell Count 12.9 X10^3/uL (4.5-11.0)
[2018-07-27 21:28] LABS: Alanine Aminotransferase 28 IU/L (9-52); Albumin 4.4 g/dL (3.5-5.0); Albumin Globulin Ratio 1.3 (1.0-2.8); Alkaline Phosphatase 84 U/L (38-126); Aspartate Aminotransferase 28 IU/L (14-36); BUN Creatinine Ratio 26.3 (6-22); Bilirubin Total 0.4 mg/dL (0.2-1.3); Blood Urea Nitrogen 21 mg/dL (7-17); Calcium 9.4 mg/dL (8.4-10.2); Carbon Dioxide 30 mmol/L (22-32); Chloride 100 mmol/L (98-107); Estimated Glomerular Filt Rate > 60.0 mL/min (>60); Globulin 3.5 g/dL (1.7-4.1); Glucose 106 mg/dL (70-100); HEMOLYSIS 18 (0-50); Lipase 149 U/L (23-300); Sodium 139 mmol/L (137-145); Total Protein 7.9 g/dL (6.3-8.2)
[2018-07-27] MEDS: KETOROLAC 60 MG/2 ML VIAL IM (21:37)
[2018-07-27 22:08] VITALS: BP 116/77; PULSE 68; RESP 18; O2SAT 98
[2018-07-27] MEDS: ONDANSETRON 4 MG ODT PREPACK 1 BOTTLE MISC (22:08)
[2018-07-27] MEDS: HYDROCODONE/ACET 5/325 PREPACK 1 BOTTLE MISC (22:08)
== END 2018-07-27 22:11 | disposition home or self-care (01) ==
PROVIDERS: Emergency Provider Internal Medicine; PCP Physician Assistant
DX: R10.9 Unspecified abdominal pain (principal)
CPT/HCPCS: 80053; 81003; 81015; 83690; 85025; 96372; 99282; 99283; J1885

== ENCOUNTER 2018-12-11 18:07 | Observation (INO) | payer OTHER, SELFPAY ==
[2018-12-11] VITALS (15 sets, daily range): BP systolic 95–117; BP diastolic 38–60; PULSE 38–74; RESP 11–22; TEMP 36.4–37.2; O2SAT 86–100; BMI 35.5
--- NOTE | 2018-12-11 18:17 | DI.RAD.S_ITS ---
PROCEDURE: XR CHEST 1V INDICATIONS: chest pain TECHNIQUE: One view of the chest was acquired. COMPARISON: [facility], , CHEST 1 VIEW, 08/27/2008, 10:53. FINDINGS: Surgical changes and devices: None. Lungs and pleura: Lungs are clear. No pleural effusions or pneumothorax. Mediastinum: Mediastinal contours appear normal. Heart size is normal. Bones and chest wall: No suspicious bony lesions. Overlying soft tissues appear unremarkable. IMPRESSION: No acute process. Dictated by: Kortney King M.D. on 12/11/2018 at 18:42 Approved by: Kortney King M.D. on 12/11/2018 at 18:42
[2018-12-11] MEDS: ASPIRIN 81 MG CHEW TAB 324 MG PO (18:33)
--- NOTE | 2018-12-11 18:37 | ED.CHESTPAIN ---
HPI - Chest Pain General Chief Complaint: Chest Pain Stated Complaint: CHEST PAIN Time Seen by Provider: 12/11/18 18:19 Source: patient Mode of arrival: ambulatory Limitations: no limitations History of Present Illness HPI narrative: Patient is a 58-year-old female who presents with chest pressure radiating up to her neck which started about 2 hours prior to arrival. It started while she was exercising on an elliptical. She typically does exercise 2 to 3 times a week it is not abnormal for her. Her discomfort has been constant it is worse with exertion. She says that she gets short of breath with exertion as well. she feels heaviness when she takes a deep breath but does not feel short of breath. She has no known history of coronary artery disease no COPD or asthma history. MD complaint: chest pain Onset (ago): hour(s) Duration: constant Onset: during exertion Quality: heaviness Related Data Home Medications Medication Instructions Recorded Confirmed sertraline [Zoloft] 100 mg PO DAILY 11/29/17 12/11/18 trazodone 150 mg PO DAILY 06/28/18 12/11/18 lidocaine [Lidoderm] 2 patch TOP Q24H PRN 12/11/18 12/11/18 Allergies Allergy/AdvReac Type Severity Reaction Status Date / Time levofloxacin AdvReac Severe Agitated Verified 12/11/18 18:17 miconazole [From Monistat 7] AdvReac rash Verified 12/11/18 18:17 Review of Systems Review of Systems GENERAL: Denies chills, fatigue, malaise, fever, sweats, travel HEENT: Denies sinus pain, ear pain, sore throat, difficulty swallowing, neck pain RESPIRATORY: Denies dyspnea, cough, wheezing, hemoptysis, sputum. CARDIOVASCULAR: See HPI GASTROINTESTINAL: Denies nausea, vomiting, abdominal pain, diarrhea, constipation, melena. : Denies dysuria, frequency, incontinence, hematuria, urinary retention, flank pain. MUSCULOSKELETAL: Denies weakness, joint pain, or bony pain SKIN: No rash, no erythema, no pruritus NEUROLOGIC: Denies weakness, dizziness, headache, numbness, change in speech, confusion PSYCHIATRIC: No concerning psychosocial issues. 12 point review of systems is negative except for those stated above and HPI [facility] Medical History Hypercholesterolemia (Chronic) Diverticulosis (Chronic) Obesity (BMI 30-39.9) (Chronic) Depression (Chronic) Status post tubal ligation (Resolved) Surgical History Perforated diverticulum (Resolved) Status post cholecystectomy (Resolved) Status post colon resection (Resolved) Social History household members: children and friend(s) Smoking Status: Former smoker alcohol intake: current Social History household members: children and friend(s) Smoking Status: Former smoker alcohol intake: current Exam Initial Vital Signs Initial Vital Signs: Vital Signs Temperature 99.0 F 12/11/18 18:17 Pulse Rate 74 12/11/18 18:17 Respiratory Rate 12 12/11/18 18:17 Blood Pressure 105/60 12/11/18 18:17 Pulse Oximetry 96 12/11/18 18:17 GENERAL: Alert pleasant middle-aged female HEENT: Head atraumatic,EOMI, pupils reactive, face symmetric, moist mucous membranes CARDIOVASCULAR: Regular rate and rhythm without murmurs, rubs or gallops. RESPIRATORY: Breath sounds equal bilaterally, no wheezes rales or rhonchi. ABDOMEN: Soft, nontender. Normoactive bowel sounds all 4 quadrants. No guarding or rebound : No CVA tenderness EXTREMITIES: Normal range of motion, no clubbing or edema. Neurovascularly intact NEUROLOGICAL: Alert and oriented x4.Normal gait and speech. SKIN: Warm, dry, no laceration, no petechiae, no rashes or lesions. Scores HEART Score Heart Score history: Highly Suspicious Heart Score EKG: Normal Heart Score Age: 45-64 years old Heart Score risk factors: 1-2 risk factors Heart Score troponin: < or = to normal limit Heart Score Total: 4 Course Orders Ordered: ED Orders 12/11/18 18:11 EKG-12 Lead Stat 12/11/18 18:17 XR chest 1V Stat 12/11/18 18:20 Complete Blood Count AUTO DIFF Stat Comprehensive Metabolic Panel Stat Lipase Stat Partial Thromboplastin Time Stat Prothrombin Time INR Stat Troponin & CK Cardiac Panel Stat 12/11/18 20:19 Magnesium Stat 12/11/18 20:20 Troponin I Stat 12/12/18 06:00 Basic Metabolic Panel Routine Complete Blood Count AUTO DIFF Routine Lipid Panel Routine TSH w/ Reflex to FT4 Routine Aspirin (Aspirin Ec) 81 mg PO DAILY [facility] Heparin Sodium (Porcine) (Heparin) 5,000 unit SUBCUT BID [facility] Morphine Sulfate (Morphine) 2 mg IV Q4HR PRN PRN Reason: Pain, Moderate (4-6) Naloxone HCl (Narcan) 0.2 mg IV Q2MIN PRN PRN Reason: Opiate Reversal Sodium Chloride (Normal Saline 0.9% Flush) 10 ml IV BID SHASHI Sodium Chloride (Normal Saline 0.9% Flush) 10 ml IV PRN PRN PRN Reason: Flush Discontinued Medications Aspirin (Aspirin Chew) 324 mg PO NOW ONE Stop: 12/11/18 18:25 Last Admin: 12/11/18 18:33 Dose: 324 mg Sodium Chloride (Normal Saline 0.9%) 1,000 mls @ 1,000 mls/hr IV BOLUS ONE Stop: 12/11/18 19:37 Last Infusion: 12/11/18 20:30 Dose: 0 mls/hr Admin: 12/11/18 18:44 Dose: 1,000 mls/hr Morphine Sulfate (Morphine) 2 mg IV NOW ONE Stop: 12/11/18 20:12 Last Admin: 12/11/18 20:47 Dose: 2 mg Nitroglycerin (Nitrostat) 0.4 mg SL [id number] PRN PRN Reason: Chest Pain Vital Signs - 8 hr 12/11/18 18:17 12/11/18 18:34 12/11/18 18:36 Temperature 99.0 F Pulse Rate 74 61 65 Respiratory Rate 12 11 L 17 Blood Pressure 105/60 Blood Pressure [Left Arm] 95/38 L 97/38 L Pulse Oximetry 96 93 93 12/11/18 18:44 12/11/18 18:56 12/11/18 18:59 Temperature Pulse Rate 53 L 47 L 47 L Respiratory Rate 11 L 18 15 Blood Pressure Blood Pressure [Left Arm] 97/38 L 95/44 L Pulse Oximetry 94 98 96 12/11/18 19:01 12/11/18 19:15 12/11/18 19:16 Temperature Pulse Rate 48 L 51 L 48 L Respiratory Rate 22 15 16 Blood Pressure Blood Pressure [Left Arm] 101/43 L 103/41 L 96/43 L Pulse Oximetry 95 97 96 12/11/18 19:41 12/11/18 20:30 12/11/18 21:15 Temperature Pulse Rate 42 L 40 L 40 L Respiratory Rate 13 13 13 Blood Pressure Blood Pressure [Left Arm] 101/53 L 99/48 L 113/46 L Pulse Oximetry 100 97 12/11/18 21:42 12/11/18 22:00 Temperature 97.5 F L Pulse Rate 38 L 45 L Respiratory Rate 16 18 Blood Pressure 95/46 L 115/51 L Blood Pressure [Left Arm] Pulse Oximetry 92 93 MDM - Chest Pain Lab Data Attestation: I reviewed the patient's lab results. Result diagrams: 12/11/18 18:20 12/11/18 18:20 Lab Results 12/11/18 12/11/18 12/11/18 Range/Units 18:20 18:20 18:20 WBC 9.7 (4.5-11.0) X10^3/uL RBC 4.47 (4.0-5.2) X10^6/uL Hgb 13.6 (12.0-16.0) g/dL Hct 41.0 (36-46) % MCV 91.9 (80-100) fL MCH 30.4 (26-34) PG MCHC 33.1 (30-36) % RDW 14.4 (11.6-14.8) % Plt Count 182 (150-400) X10^3/uL Neut % (Auto) 66.3 (50-75) % Lymph % (Auto) 26.0 (25-40) % [place] % (Auto) 4.9 (3-14) % Eos % (Auto) 1.9 L (2-4) % Baso % (Auto) 0.9 (0-2) % Neut # (Auto) 6400 (1847-8388) /uL Lymph # (Auto) 2500 (4848-1109) /uL [place] # (Auto) 500 (0-900) /uL Eos # (Auto) 200 (0-450) /uL Baso # (Auto) 100 (0-100) /uL PT 11.4 (10.1-12.7) SECONDS INR 1.0 (0.9-1.3) APTT 34 (26.4-36.2) SECONDS Sodium 140 (137-145) mmol/L Potassium 4.1 (3.4-5.1) mmol/L Chloride 103 (98-107) mmol/L Carbon Dioxide 30 (22-32) mmol/L BUN 16 (7-17) mg/dL Creatinine 0.70 (0.52-1.04) mg/dL Estimated GFR > 60.0 (>60) mL/min BUN/Creatinine Ratio 22.9 H (6-22) Glucose 139 H (70-100) mg/dL Calcium 9.4 (8.4-10.2) mg/dL Magnesium (1.6-2.3) mg/dL Total Bilirubin 0.4 (0.2-1.3) mg/dL AST 21 (14-36) IU/L ALT 8 L (9-52) IU/L Alkaline Phosphatase 78 (38-126) U/L Total Creatine Kinase 70 (30-135) U/L CK-MB (CK-2) TNP CK-MB (CK-2) Rel Index TNP Troponin I < 0.012 (0.01-0.034) ng/mL Total Protein 7.5 (6.3-8.2) g/dL Albumin 4.0 (3.5-5.0) g/dL Globulin 3.5 (1.7-4.1) g/dL Albumin/Globulin Ratio 1.1 (1.0-2.8) Lipase 117 (23-300) U/L 12/11/18 12/11/18 Range/Units 20:19 20:20 WBC (4.5-11.0) X10^3/uL RBC (4.0-5.2) X10^6/uL Hgb (12.0-16.0) g/dL Hct (36-46) % MCV (80-100) fL MCH (26-34) PG MCHC (30-36) % RDW (11.6-14.8) % Plt Count (150-400) X10^3/uL Neut % (Auto) (50-75) % Lymph % (Auto) (25-40) % [place] % (Auto) (3-14) % Eos % (Auto) (2-4) % Baso % (Auto) (0-2) % Neut # (Auto) (8972-7465) /uL Lymph # (Auto) (9807-5823) /uL [place] # (Auto) (0-900) /uL Eos # (Auto) (0-450) /uL Baso # (Auto) (0-100) /uL PT (10.1-12.7) SECONDS INR (0.9-1.3) APTT (26.4-36.2) SECONDS Sodium (137-145) mmol/L Potassium (3.4-5.1) mmol/L Chloride (98-107) mmol/L Carbon Dioxide (22-32) mmol/L BUN (7-17) mg/dL Creatinine (0.52-1.04) mg/dL Estimated GFR (>60) mL/min BUN/Creatinine Ratio (6-22) Glucose (70-100) mg/dL Calcium (8.4-10.2) mg/dL Magnesium 1.6 (1.6-2.3) mg/dL Total Bilirubin (0.2-1.3) mg/dL AST (14-36) IU/L ALT (9-52) IU/L Alkaline Phosphatase (38-126) U/L Total Creatine Kinase (30-135) U/L CK-MB (CK-2) CK-MB (CK-2) Rel Index Troponin I < 0.012 (0.01-0.034) ng/mL Total Protein (6.3-8.2) g/dL Albumin (3.5-5.0) g/dL Globulin (1.7-4.1) g/dL Albumin/Globulin Ratio (1.0-2.8) Lipase (23-300) U/L Imaging Data Chest x-ray: Radiologist's impression: PROCEDURE: XR CHEST 1V INDICATIONS: chest pain TECHNIQUE: One view of the chest was acquired. COMPARISON: [facility], CHEST 1 VIEW, 08/27/2008, 10:53. FINDINGS: Surgical changes and devices: None. Lungs and pleura: Lungs are clear. No pleural effusions or pneumothorax. Mediastinum: Mediastinal contours appear normal. Heart size is normal. Bones and chest wall: No suspicious bony lesions. Overlying soft tissues appear unremarkable. IMPRESSION: No acute process. Dictated by: Kortney King M.D. on 12/11/2018 at 18:42 ECG Data Attestation: I personally reviewed and interpreted this ECG as follows: Prior ECG tracings: available for review Interpretation: EKG #1 normal sinus Rhythm rate 68 p.r. interval 155 QRS [address] elevations no ST depressions T-wave inversion noted in lead 3 EKG 2. Normal sinus rhythm rate 49 no changes from prior EKG 3. Sinus rhythm rate [address] changes similar to previous MDM Narrative Medical decision making narrative: Patient's blood pressure initially low with systolic in the 100s and then dropped to the 90s. She was not given nitroglycerin for this reason. She was given morphine for her pain instead which did seem to help. Gissell TRAN, agrees with observation Discharge Plan Departure Patient Disposition: Admitted as Observation Clinical Impression: Chest pain Qualifiers: Chest pain type: unspecified Qualified Code(s): R07.9 - Chest pain, unspecified Discharge Date/Time: 12/11/18 22:00 Interventions: ED Discharge Assessment Last Done: 12/11/18 21:42 Admit Date/Time: 12/11/18 21:20 Admit Provider: Ac Valdes
[2018-12-11 18:40] LABS: Add Manual Diff / Slide Review NO; Basophils Absolute Auto 100 /uL (0-100); Basophils Percent Auto 0.9 % (0-2); Eosinophils Absolute Auto 200 /uL (0-450); Eosinophils Percent Auto 1.9 % (2-4); Hemoglobin 13.6 g/dL (12.0-16.0); Lymphocytes Absolute Auto 2500 /uL (1100-4500); Mean Corpuscular HGB Conc 33.1 % (30-36); Mean Corpuscular Hemoglobin 30.4 PG (26-34); Mean Corpuscular Volume 91.9 fL (80-100); Monocytes Absolute Auto 500 /uL (0-900); Monocytes Percent Auto 4.9 % (3-14); Neutrophils Absolute Auto 6400 /uL (1500-7000); Neutrophils Percent Auto 66.3 % (50-75); Platelet Count 182 X10^3/uL (150-400); Red Blood Cell Count 4.47 X10^6/uL (4.0-5.2); Red Cell Distribution Width 14.4 % (11.6-14.8); White Blood Cell Count 9.7 X10^3/uL (4.5-11.0)
[2018-12-11 18:44] LABS: Prothrombin Time 11.4 SECONDS (10.1-12.7)
[2018-12-11] MEDS: SODIUM CHLORIDE 0.9% 1,000 ML 1000 ML IV (18:44)
[2018-12-11 18:46] LABS: PTT Partial Thromboplastin Tim 34 SECONDS (26.4-36.2)
[2018-12-11 18:51] LABS: Alanine Aminotransferase 8 IU/L (9-52); Albumin Globulin Ratio 1.1 (1.0-2.8); Alkaline Phosphatase 78 U/L (38-126); Aspartate Aminotransferase 21 IU/L (14-36); BUN Creatinine Ratio 22.9 (6-22); Bilirubin Total 0.4 mg/dL (0.2-1.3); Blood Urea Nitrogen 16 mg/dL (7-17); Calcium 9.4 mg/dL (8.4-10.2); Carbon Dioxide 30 mmol/L (22-32); Chloride 103 mmol/L (98-107); Creatine Kinase 70 U/L (30-135); Estimated Glomerular Filt Rate > 60.0 mL/min (>60); Globulin 3.5 g/dL (1.7-4.1); Glucose 139 mg/dL (70-100); HEMOLYSIS < 15 (0-50); Lipase 117 U/L (23-300); Potassium 4.1 mmol/L (3.4-5.1); Sodium 140 mmol/L (137-145); Total Protein 7.5 g/dL (6.3-8.2)
--- NOTE | 2018-12-11 18:54 | PC.NURSE ---
states, while exercising developed substernal heaviness, occured at 430pm, no other associated sxs.
[2018-12-11 19:02] LABS: Troponin I < 0.012 ng/mL (0.01-0.034)
[2018-12-11] MEDS: MORPHINE 2 MG/ML INJ IV (20:47)
[2018-12-11 20:51] LABS: Troponin I < 0.012 ng/mL (0.01-0.034)
--- NOTE | 2018-12-11 21:57 | P.HP_ITS ---
History of Present Illness Date Patient Seen: 12/11/18 Time Patient Seen: 21:54 Chief complaint: CHEST PAIN Narrative: The patient is a 58-year-old female with PMH of VTach, HLD, obesity (s/p gastric sleeve, 09/06/2018), prior history of tobacco use, diverticulosis (s/p colon resection), GERD, anxiety and depresion. Patient presents out of concern for chest discomfort. Onset of symptoms is acute, initially noted at 4:15 p.m. on 12/11/2018. At time of the event patient was at the gym. She has finished a 15 minutes rigors work out on an elliptical. She sat down to rest and was waiting for the next work-out class. While resting started to feel disoriented and developed mid-sternal chest discomfort. Describes chest discofort as having pressure like quality w/ radiation to bilateral aspects of the neck. Chest discomfort is rated 8/10. Chest discomfort was constant until patient arrived to the ED. It was partially improved with administration of 2 mg of morphine. Associated symptoms included shortness of breath, lightheadedness, and nausea. Patient denies headache, change in vision, palpitations, heaviness or paresthesia of extremities, or abdominal pain. Denies exertional dyspnea at baseline, however unable to ambulate long distances due to arthritic pain. Patient reports inability to climb 2 flights of stairs. Estimates ability to walk 50 ft of moderate exertion. Patient reports having an episode of chest discomfort far to 6 years ago. At that time she underwent a cardiac workup that included a stress test. During her stress test she developed ventricular tachycardia. Consequently, she underwent a cardiac catheterization w/ no intervention. Patient was placed on a medication for rate control. She is unable to recall the name of the med ication; however, after 1 year patient has taken herself off the medication on her own accord as she felt the medication was making her tired. Patient was living in [place] at that time and her cardiac evaluation was done at the [facility]. Patient denies prior history of hypertension. No known coronary or valvular heart disease. No history of cerebrovascular events or stroke. No history of diabetes. No history of PE or DVT. No known thyroid abnormalities. Family history is significant for sudden cardiac in her father at the age of 69, cardiac arrhythmia in her brother requiring pacemaker implantation, and TIA/stroke in mother. On 09/06/2018 patient has underwent a gastric sleeve for underlying obesity. Reports weight loss of 35 lb. ED presentation & work-up VS 12/11/18 at 6:17 p.m... T 99F BP 105/60 HR 74 RR 12 SpO2 96% on room air Labs, 12/11/18 @ 1820 WBC 9.7 Hgb 13.6 Plt 182 PT 11.4 INR 1.0 aPTT 34 Na 140 K 4.1 Cl 103 Ca 9.4 Glu 139 CO2 30 Cr 0.7 BUN/Cr 22.9 T. Bili 0.4 AST 21 ALT 8 Alk Phos 78 Trop < 0.012 x2 CXR, 12/11/2018... No acute cardiopulmonary findings In ED received 1 L NS bolus, 324 mg ASA, and 2mg IV morphine Patient History Medical History Hypercholesterolemia (Chronic) Diverticulosis (Chronic) Obesity (BMI 30-39.9) (Chronic) Depression (Chronic) Status post tubal ligation (Resolved) Surgical History Perforated diverticulum (Resolved) Status post cholecystectomy (Resolved) Status post colon resection (Resolved) Social History household members: children and friend(s) Smoking Status: Former smoker alcohol intake: current Family & Social History Safety & Behavioral: Feels Safe in Current Yes Environment Been Physically Hurt or No Threatened By a Person Tobacco & Substance use: Smoking Status Former smoker alcohol intake frequency holiday/special occasion Substance Use Type marijuana Meds Home Medications Medication Instructions Recorded Confirmed Type sertraline [Zoloft] 100 mg PO DAILY 11/29/17 12/11/18 History trazodone 150 mg PO DAILY 06/28/18 12/11/18 History lidocaine [Lidoderm] 2 patch TOP Q24H PRN 12/11/18 12/11/18 History Allergies Allergy/AdvReac Type Severity Reaction Status Date / Time levofloxacin AdvReac Severe Agitated Verified 12/11/18 18:17 miconazole [From Monistat 7] AdvReac rash Verified 12/11/18 18:17 Review of Systems Review of Systems All systems reviewed & are unremarkable except as noted in HPI and below Exam Vital Signs (past 8 hours): - 12/11/18 18:17 12/11/18 18:34 12/11/18 18:36 Temperature 99.0 F Pulse Rate 74 61 65 Respiratory Rate 12 11 L 17 Blood Pressure 105/60 Blood Pressure [Left Arm] 95/38 L 97/38 L Pulse Oximetry 96 93 93 12/11/18 18:44 12/11/18 18:56 12/11/18 18:59 Temperature Pulse Rate 53 L 47 L 47 L Respiratory Rate 11 L 18 15 Blood Pressure Blood Pressure [Left Arm] 97/38 L 95/44 L Pulse Oximetry 94 98 96 12/11/18 19:01 12/11/18 19:15 12/11/18 19:16 Temperature Pulse Rate 48 L 51 L 48 L Respiratory Rate 22 15 16 Blood Pressure Blood Pressure [Left Arm] 101/43 L 103/41 L 96/43 L Pulse Oximetry 95 97 96 12/11/18 19:41 12/11/18 20:30 12/11/18 21:15 Temperature Pulse Rate 42 L 40 L 40 L Respiratory Rate 13 13 13 Blood Pressure Blood Pressure [Left Arm] 101/53 L 99/48 L 113/46 L Pulse Oximetry 100 97 Oxygen Delivery Method Nasal Cannula Oxygen Flow Rate 2 Narrative Exam Narrative: Constitutional: NAD, obese habitus, BMI 35.5 Neurologic: AOx3, no focal neurological deficits Head: NC, AT Eyes: PERRL, EOMI Ears: external ears normal, no otorrhea Nose: external nose normal, no rhinorrhea or epistaxis Throat: MMM, oropharynx w/o exudate Neck: no masses, lymphadenopathy, or JVD Chest / Respiratory: equal chest rise, unlabored respiratory effort, CTAB, on RA Heart / CV: S1S2, no murmur Abdomen / GI: central obesity, NT, ND, + BS, no organomegaly : no suprapubic tenderness Peripheral / Vascular: warm to touch, DP and PT pulses palpable (diminished), no edema Musc: full ROM of upper and lower extremities, adequate muscle tone and bulk Skin: no ecchymosis or suspicious lesions / ulcers Objective Labs Result Diagrams: 12/11/18 18:20 12/11/18 18:20 Labs: Laboratory Results - last 24 hr 12/11/18 12/11/18 12/11/18 18:20 18:20 18:20 WBC 9.7 RBC 4.47 Hgb 13.6 Hct 41.0 MCV 91.9 MCH 30.4 MCHC 33.1 RDW 14.4 Plt Count 182 Neut % (Auto) 66.3 Lymph % (Auto) 26.0 [place] % (Auto) 4.9 Eos % (Auto) 1.9 L Baso % (Auto) 0.9 Neut # (Auto) 6400 Lymph # (Auto) 2500 [place] # (Auto) 500 Eos # (Auto) 200 Baso # (Auto) 100 PT 11.4 INR 1.0 APTT 34 Sodium 140 Potassium 4.1 Chloride 103 Carbon Dioxide 30 BUN 16 Creatinine 0.70 Estimated GFR > 60.0 BUN/Creatinine Ratio 22.9 H Glucose 139 H Calcium 9.4 Total Bilirubin 0.4 AST 21 ALT 8 L Alkaline Phosphatase 78 Total Creatine Kinase 70 CK-MB (CK-2) TNP CK-MB (CK-2) Rel Index TNP Troponin I < 0.012 Total Protein 7.5 Albumin 4.0 Globulin 3.5 Albumin/Globulin Ratio 1.1 Lipase 117 12/11/18 20:20 WBC RBC Hgb Hct MCV MCH MCHC RDW Plt Count Neut % (Auto) Lymph % (Auto) [place] % (Auto) Eos % (Auto) Baso % (Auto) Neut # (Auto) Lymph # (Auto) [place] # (Auto) Eos # (Auto) Baso # (Auto) PT INR APTT Sodium Potassium Chloride Carbon Dioxide BUN Creatinine Estimated GFR BUN/Creatinine Ratio Glucose Calcium Total Bilirubin AST ALT Alkaline Phosphatase Total Creatine Kinase CK-MB (CK-2) CK-MB (CK-2) Rel Index Troponin I < 0.012 Total Protein Albumin Globulin Albumin/Globulin Ratio Lipase Assessment & Plan Assessment & Plan narrative: Patient is being admitted for chest pain. Chest pain, acute, present on admission, active DDx: acute SD vs coronary ischemia vs symptomatic bradycardia vs coronary spasm - Tele monitoring - Stress test on 12/12 - NPO at midnight - Continue trending troponins - Received 325 mg ASA in ED, continue 81 mg daily - Morphine 2 mg Q3H prn chest pain - Risk Stratify, A1C FLP - Will consider starting heparin if chest pain persists - Check Mg, result reviewed 1.6, will give 2 gm IV Mag Bradycardia, acute, suspected to be symptomatic, present on admission, active Potentially symptomatic bradycardia. Not on BB at home. On SSRI (sertraline) w/ potential for bradycardia and QTc prolongation. - Tele monitoring - Atropine, if symptomatic - Check TSH - Echo in am Hyperlipidemia, chronic condition, present on admission, active Patient was previously on a statin. She has discontinued it on her own accord in the past year as she felt that her lipids have normalized. In May of 2017 LDL was 165 - Check FLP, will likely need a statin Obesity, chronic condition, BMI 35.5, present on admission, stable - s/p gastric sleeve 08/2018 Depression w/ anxiety, chronic condition, present on admission, stable No harmful thoughts towards self or others. [employer]IVE on sertraline 100 mg daily and trazodone 150 mg daily. - Hold sertraline at this time - Resume trazodone per [employer] O[employer]IVE regimen Full code. Home medications reviewed and reconciled. VT prophylaxis
[2018-12-11 22:35] LABS: Magnesium 1.6 mg/dL (1.6-2.3)
--- NOTE | 2018-12-11 23:24 | DI.NM.S_ITS ---
PROCEDURE: NM BETH PERF SPECT R&S PHARM Rest and pharmacological stress myocardial perfusion SPECT with gated imaging and ejection fraction RADIOPHARMACEUTICAL: 26.6 mCi Tc-99m tetrafosmin IV at rest and 24.8 mCi Tc-99m tetrafosmin IV at peak effect of pharmacological stress. [id number] was performed. INDICATIONS: chest pain TECHNIQUE: Radiopharmaceutical was injected at peak stress test, and also at rest. SPECT images were obtained. SPECT myocardial perfusion images were displayed in short axis, horizontal long axis, and vertical long axis views. Gated images were reviewed using Covacsis software. COMPARISON: None. CARDIAC STRESS: A pharmacologic stress test was performed under the supervision of an attending staff, using an infusion of lexiscan 0.4mg IV X1. Hemodynamic data: There is normal blood pressure and heart rate response to pharmacologic stress. Symptoms: The patient denied anginal chest pain. Aminophylline: none EKG: No diagnostic changes of ischemia; no ectopy. FINDINGS: Raw data: There is good myocardial uptake of radiotracer. No significant motion artifacts. Bdpr-wh-iidzz ratio is 0.39 (normal is less than 0.38 for tetrafosmin tracer). Left ventricle function: Gated images demonstrate normal left ventricular wall thickening. No segmental wall motion abnormalities. No transient ischemic dilation; TID is 0.96 (normal less than 1.3). Left ventricle resting end diastolic volume is 88 mL. Left ventricle stress ejection fraction is 83%; normal range is above 45%. Myocardial perfusion: There is normal distribution of activity in the right and left ventricular myocardium. No fixed or reversible perfusion defects. IMPRESSION: Low risk, normal pharmaceutical nuclear stress test 1) No perfusion evidence of ischemia or infarction. 2) Normal left ventricular size, wall motion, and systolic function. 3) No ECG evidence of ischemia. 4) No angina during the study. 5) No prior nuclear stress test available for comparison. Dictated by: Naty Ferrer MD on 12/14/2018 at 12:57 Approved by: Naty Ferrer MD on 12/14/2018 at 13:00
--- NOTE | 2018-12-11 23:31 | DI.ECHO.S_ITS ---
[facility]---------[facility] +---------+ : : [address] : : : : [id number] : : : : Phone: [phone]+ Echocardiogram Report + + :Name: BALDEMAR BEEBE Study Date: 12/12/2018 Height: 64 in : :[facility] Exam Location: IS Weight: 206 lb : : Gender: Female BSA: 2.0 m2 : :: 1960 Age: 58 yrs BP: 108/54 mmHg: :Reason For Study: BRADYCARDIA, CP : : Performed By: Ray Hopson : :Referring: RAMON WOLFF : + + Interpretation Summary The left ventricle is normal in size. Left ventricular systolic function is normal without focal wall motion abnormalities. The ejection fraction is estimated to be 60-65%. Diastolic parameters suggest probable normal left ventricular diastolic function and normal filling pressures. The right ventricle is normal in size and function. The right ventricular systolic pressure is estimated to be at least 23 mmHg based on an estimated right atrial pressure of 3 mm Hg. The left atrium is moderately dilated. Right atrial size is normal. There is moderate mitral regurgitation. There is no other significant valvular heart disease. The aortic root is normal size. Procedure: A two-dimensional transthoracic echocardiogram with color flow and Doppler was performed. The study quality was technically adequate. There is no prior echocardiogram noted for this patient. The patient was in normal sinus rhythm during the exam. The patient was bradycardic with a heart rate of 34-50 beats per minute. Left Ventricle: The left ventricle is normal in size. There is normal left ventricular wall thickness. Left ventricular systolic function is normal without focal wall motion abnormalities. The ejection fraction is estimated to be 60-65%. Diastolic parameters suggest probable normal left ventricular diastolic function and normal filling pressures. Right Ventricle: The right ventricle is normal in size and function. Atria: The left atrium is moderately dilated. Right atrial size is normal. The interatrial septum is intact with no evidence for an atrial septal defect. Mitral Valve: There is mild mitral annular calcification. The mitral valve leaflets are slightly calcified. There is moderate mitral regurgitation. Aortic Valve: The aortic valve is trileaflet. The aortic valve is slightly calcified. The aortic valve opens well. No aortic regurgitation is present. Tricuspid Valve: The tricuspid valve is normal in structure and function. There is mild tricuspid regurgitation. The right ventricular systolic pressure is estimated to be at least 23 mmHg based on an estimated right atrial pressure of 3 mm Hg. Pulmonic Valve: The pulmonic valve is normal in structure and function. There is trace pulmonic regurgitation. There is no other significant valvular heart disease. Great Vessels: The aortic root is normal size. The dimensions of the ascending aorta are normal. The pulmonary artery is normal size. The IVC is of normal diameter and collapses greater than 50% with a sniff. This suggests a low right atrial pressure of 3 mm Hg. Pericardium/ Pleura There is no pericardial effusion. There is no pleural effusion. MMode/2D Measurements & Calculations LVIDd: 4.8 cm LVOT diam: 2.0 cm LVIDs: 2.8 cm Ao root diam: 2.4 cm FS: 40.9 % Aortic Jxn: 1.8 cm EPSS: 0.58 cm asc Aorta Diam: 3.4 cm IVSd: 0.92 cm Ao Arch Diam (Prox Trans): 2.6 cm LVPWd: 0.84 cm LV go. diameter/BSA (cm/m^2): 2.4 LV sys. diameter/BSA (cm/m^2): 1.4 LA dimension: 4.7 cm RA long axis: 5.1 cm LA A2 area: 23.3 cm2 RA area: 16.5 cm2 LA A4 area: 25.2 cm2 RA vol: 45.1 ml LA length (vol): 5.9 cm RA : 22.8 ml/m2 LA vol: 84.7 ml IVC diam: 2.0 cm LA vol index: 42.8 ml/m2 Doppler Measurements & Calculations Ao V2 max: 172.3 cm/sec LVOT Max Gt: 123.8 cm/sec Ao V2 mean: 117.3 cm/sec LV V1 max P.1 mmHg Ao max P.9 mmHg LV V1 VTI: 41.0 cm Ao mean P.2 mmHg DANTE(I,D): 2.5 cm2 Ao V2 VTI: 52.0 cm DANTE(V,D): 2.3 cm2 sev ratio: 0.79 DANTE indexed to BSA (cm^2/m^2): 1.3 MV E max gt: 103.8 cm/sec TR max gt: 221.5 cm/sec MV A max gt: 79.2 cm/sec TR max P.6 mmHg MV E/A: 1.3 PA V2 max: 77.6 cm/sec Med Peak E' Gt: 6.5 cm/sec PA V2 mean: 56.9 cm/sec E/E' med: 16.0 PA mean P.4 mmHg Lat Peak E' Gt: 9.3 cm/sec PA pr(Accel): 9.1 mmHg E/E' lat: 11.2 PA Accel Time: 0.15 sec E/e' average: 13.6 MV dec time: 0.24 sec SV(LVOT): 130.1 ml Reading Physician:12:00 PM
[2018-12-11] MEDS: TRAZODONE 100 MG TABLET 150 MG PO (23:54)
[2018-12-11] MEDS: HEPARIN 5,000 UNIT/ML VIAL 5000 UNIT SUBCUT (23:55)
[2018-12-11] MEDS: SODIUM CHLORIDE 0.9% FLUSH 10 ML IV (23:58)
[2018-12-11] MEDS: MAGNESIUM SULFATE 2 GM/50 ML PIGGYBACK IV (23:58)
[2018-12-11] MEDS: SODIUM CHLORIDE 0.9% 1,000 ML 75 ML IV (23:58)
[2018-12-12] VITALS (9 sets, daily range): BP systolic 98–118; BP diastolic 43–87; PULSE 40–48; RESP 14–17; TEMP 36.4–37; O2SAT 93–96
[2018-12-12] MEDS: MORPHINE 2 MG/ML INJ IV (00:50)
--- NOTE | 2018-12-12 01:07 | PC.NURSE ---
Addendum entered by Tammie Busby R.N. 12/12/18 03:48: Noted BP low at 98/46 but was similarly low prior to admit. Telemetry reading was SB with rate of 41; asymptomatic. Addendum entered by Tammie Busby R.N. 12/12/18 01:10: Patient assisted to bathroom with SBA and voided 350cc clear diamond urine. States chest pain is now 7/10 and requests/medicated with Morphine. Has been NPO since midnight per MD order. Son arrived and is rooming in. Original Note: 0015 Patient is alert and oriented. Breath sounds CTA with RA sat of 98%. HRR but rhoda with rate of 50 per telemetry reading. Denies nausea. BT hypoactive; denies bowel dysfunction. Denies dysuria, frequency, urgency or incontinence. Is able to turn herself in bed. Does complain of 6/10 left chest tightness/pressure but declines offer of pain medication. Noted moist, red, yeasty smelling skin under left abdominal pannus. Fall risk score is moderate; agreeable to calling for assistance.
[2018-12-12 06:50] LABS: BUN Creatinine Ratio 18.6 (6-22); Blood Urea Nitrogen 13 mg/dL (7-17); Calcium 8.3 mg/dL (8.4-10.2); Carbon Dioxide 28 mmol/L (22-32); Chloride 108 mmol/L (98-107); Cholesterol 158 mg/dL (140-199); Estimated Glomerular Filt Rate > 60.0 mL/min (>60); Glucose 92 mg/dL (70-100); HDL Cholesterol 23 mg/dL (40-60); HEMOLYSIS < 15 (0-50); LDL Cholesterol Calculated 112 mg/dL (<100); Sodium 140 mmol/L (137-145); Triglycerides 113 mg/dL (35-150)
[2018-12-12 06:51] LABS: Add Manual Diff / Slide Review NO; Basophils Absolute Auto 0 /uL (0-100); Basophils Percent Auto 0.6 % (0-2); Eosinophils Absolute Auto 300 /uL (0-450); Eosinophils Percent Auto 4.3 % (2-4); Hematocrit 37.1 % (36-46); Hemoglobin 12.3 g/dL (12.0-16.0); Lymphocytes Absolute Auto 2500 /uL (1100-4500); Lymphocytes Percent Auto 40.3 % (25-40); Mean Corpuscular HGB Conc 33.1 % (30-36); Mean Corpuscular Hemoglobin 30.5 PG (26-34); Mean Corpuscular Volume 92.1 fL (80-100); Monocytes Absolute Auto 400 /uL (0-900); Monocytes Percent Auto 6.3 % (3-14); Neutrophils Absolute Auto 3000 /uL (1500-7000); Neutrophils Percent Auto 48.5 % (50-75); Platelet Count 161 X10^3/uL (150-400); Red Blood Cell Count 4.03 X10^6/uL (4.0-5.2); Red Cell Distribution Width 14.5 % (11.6-14.8); White Blood Cell Count 6.3 X10^3/uL (4.5-11.0)
[2018-12-12 07:21] LABS: TSH w/ Reflex to FT4 4.01 uIU/mL (0.47-4.68)
[2018-12-12] MEDS: SODIUM CHLORIDE 0.9% FLUSH 10 ML IV ×2 (08:47→21:05)
[2018-12-12] MEDS: HEPARIN 5,000 UNIT/ML VIAL 5000 UNIT SUBCUT ×2 (08:47→21:04)
[2018-12-12] MEDS: ASPIRIN EC 81 MG TABLET PO (08:47)
--- NOTE | 2018-12-12 13:53 | PM.PN.1 ---
Subjective Subjective Date Patient Seen: 12/12/18 Time Patient Seen: 13:54 Interval history: Brian Hill is an 58-year-old female with PMH of HLD, obesity (s/p gastric sleeve, 09/06/2018), prior history of tobacco use, diverticulosis (s/p colon resection), GERD, anxiety and depresion who was admitted for chest pain and bradycardia. She did not undergo a stress test today due to availability, in her echocardiogram revealed a dilated left atrium but no other significant abnormalities. Other lab evaluation has been unremarkable to this point. She still continues to have some intermittent chest pressure, which she states is like someone sitting on top of her chest. This morning it lasted for about 10 minutes, which was much shorter than when she came to the emergency room. Her troponins have been negative, and her EKGs show sinus bradycardia. She reported to me that her smart watch has alerted her that her heart rate has gone persistently below 40, this is new for her only occurring the past few days. She denies any medication changes, and has been on sertraline and trazodone for many years. Exam Vital Signs (past 8 hours): - 12/12/18 08:13 12/12/18 08:20 12/12/18 12:55 Temperature 97.7 F 98.6 F Pulse Rate 40 L 46 L Respiratory Rate 15 17 Blood Pressure 108/54 L 115/87 Pulse Oximetry 93 93 94 12/12/18 13:00 Temperature Pulse Rate Respiratory Rate Blood Pressure Pulse Oximetry 96 Oxygen Delivery Method Room Air Oxygen Flow Rate 0 Narrative Exam Narrative: GENERAL APPEARANCE: Obese female, Well developed, well nourished, in no acute distress. SKIN: Inspection of the skin reveals no rashes, ulcerations or petechiae. HEENT: The sclerae were anicteric and conjunctivae were pink and moist. Extraocular movements were intact and pupils were equal, round with normal accommodation. External inspection of the ears and nose showed no scars, lesions, or masses. Lips, teeth, and gums showed normal mucosa. The oral mucosa, hard and soft palate, tongue and posterior pharynx were unremarkable. NECK: Supple and symmetric. There was no thyroid enlargement, and no tenderness, or masses were felt. CHEST: Normal AP diameter and normal contour without any kyphoscoliosis. LUNGS: Auscultation of the lungs revealed no wheezes, rhonchi, or rales. CARDIOVASCULAR: There was a regular bradycardia without any murmurs, gallops, rubs. Peripheral pulses were 2+ and symmetric. ABDOMEN: Soft and nontender with normal bowel sounds. No ascites was noted. MUSCULOSKELETAL: There was effusions noted, she has mild chronic tenderness in her bilateral knees. Muscle strength and tone were normal. EXTREMITIES: No cyanosis, clubbing or edema. NEUROLOGIC: Alert and oriented x 3. Normal affect. Gait was normal. Strength is +5/5 in the Upper Extremities and Lower Extremities Bilaterally. Sensation to touch was normal. Objective Labs Result Diagrams: 12/12/18 06:07 12/12/18 06:07 Labs: Laboratory Results - last 24 hr 12/11/18 12/11/18 12/11/18 18:20 18:20 18:20 WBC 9.7 RBC 4.47 Hgb 13.6 Hct 41.0 MCV 91.9 MCH 30.4 MCHC 33.1 RDW 14.4 Plt Count 182 Neut % (Auto) 66.3 Lymph % (Auto) 26.0 [place] % (Auto) 4.9 Eos % (Auto) 1.9 L Baso % (Auto) 0.9 Neut # (Auto) 6400 Lymph # (Auto) 2500 [place] # (Auto) 500 Eos # (Auto) 200 Baso # (Auto) 100 PT 11.4 INR 1.0 APTT 34 Sodium 140 Potassium 4.1 Chloride 103 Carbon Dioxide 30 BUN 16 Creatinine 0.70 Estimated GFR > 60.0 BUN/Creatinine Ratio 22.9 H Glucose 139 H Calcium 9.4 Magnesium Total Bilirubin 0.4 AST 21 ALT 8 L Alkaline Phosphatase 78 Total Creatine Kinase 70 CK-MB (CK-2) TNP CK-MB (CK-2) Rel Index TNP Troponin I < 0.012 Total Protein 7.5 Albumin 4.0 Globulin 3.5 Albumin/Globulin Ratio 1.1 Triglycerides Cholesterol LDL Cholesterol, Calc HDL Cholesterol Lipase 117 TSH 12/11/18 12/11/18 12/12/18 20:19 20:20 06:07 WBC 6.3 RBC 4.03 Hgb 12.3 Hct 37.1 MCV 92.1 MCH 30.5 MCHC 33.1 RDW 14.5 Plt Count 161 Neut % (Auto) 48.5 L Lymph % (Auto) 40.3 H [place] % (Auto) 6.3 Eos % (Auto) 4.3 H Baso % (Auto) 0.6 Neut # (Auto) 3000 Lymph # (Auto) 2500 [place] # (Auto) 400 Eos # (Auto) 300 Baso # (Auto) 0 PT INR APTT Sodium Potassium Chloride Carbon Dioxide BUN Creatinine Estimated GFR BUN/Creatinine Ratio Glucose Calcium Magnesium 1.6 Total Bilirubin AST ALT Alkaline Phosphatase Total Creatine Kinase CK-MB (CK-2) CK-MB (CK-2) Rel Index Troponin I < 0.012 Total Protein Albumin Globulin Albumin/Globulin Ratio Triglycerides Cholesterol LDL Cholesterol, Calc HDL Cholesterol Lipase TSH 12/12/18 12/12/18 06:07 06:07 WBC RBC Hgb Hct MCV MCH MCHC RDW Plt Count Neut % (Auto) Lymph % (Auto) [place] % (Auto) Eos % (Auto) Baso % (Auto) Neut # (Auto) Lymph # (Auto) [place] # (Auto) Eos # (Auto) Baso # (Auto) PT INR APTT Sodium 140 Potassium 4.0 Chloride 108 H Carbon Dioxide 28 BUN 13 Creatinine 0.70 Estimated GFR > 60.0 BUN/Creatinine Ratio 18.6 Glucose 92 Calcium 8.3 L Magnesium Total Bilirubin AST ALT Alkaline Phosphatase Total Creatine Kinase CK-MB (CK-2) CK-MB (CK-2) Rel Index Troponin I Total Protein Albumin Globulin Albumin/Globulin Ratio Triglycerides 113 Cholesterol 158 LDL Cholesterol, Calc 112 H HDL Cholesterol 23 L Lipase TSH 4.01 Assessment & Plan Assessment & Plan narrative: Brian Hill is an 58-year-old female with PMH of HLD, obesity (s/p gastric sleeve, 09/06/2018), prior history of tobacco use, diverticulosis (s/p colon resection), GERD, anxiety and depresion who was admitted for chest pain and bradycardia. She is currently pending a cardiac stress test. 1. Chest pain, acute, present on admission, active - acute AR not present given negative troponins and EKG findings. This could represent atypical angina, anxiety, GERD. She had a stress test and a LHC about 6 years ago in [place]. She had VTACH during her stress test and subsequent LHC showed normal coronaries. - Tele monitoring - Stress test now on 12/13. - NPO at midnight - Received 325 mg ASA in ED, continue 81 mg daily 2. Bradycardia, acute, present on admission, active - unclear etiology at this time but appears to be recent based on history. Her EKGs show no QT prolongation, she is not on a BB at home. Consider nutritional deficiency secondary to bariatric surgery (however this is less common after sleeve gastrectomy). TSH is unremarkable and TTE is also unremarkable. - Tele monitoring - Atropine, if symptomatic 3. Hyperlipidemia, chronic condition, present on admission, active Patient was previously on a statin. She has discontinued it on her own accord in the past year as she felt that her lipids have normalized. In May of 2017 LDL was 165 - LDL >100, however ASCVD risk is 3.5% , no statin therapy is recommended at this time pending cardiac workup. 4. Obesity, chronic condition, BMI 35.5, present on admission, stable - s/p gastric sleeve 08/2018 5. Depression w/ anxiety, chronic condition, present on admission, stable No harmful thoughts towards self or others. [employer] on sertraline 100 mg daily and trazodone 150 mg daily. - Hold sertraline at this time - Resume trazodone per home regimen Quality VTE Deep Vein Thrombosis/Pulmonary Embolism Present on Admission: No
--- NOTE | 2018-12-12 17:20 | PC.NURSE ---
Evening shift note: Patient alert and pleasant. Sitting up in chair, continue with Bradycardia at 41 HR. BP 118/43. No c/o dizziness, chest pain, or SOB. States feels a bit fatigued, however improving. Aware of NPO status in the AM for Stress test. Will continue to monitor closely.
[2018-12-12] MEDS: TRAZODONE 100 MG TABLET 150 MG PO (21:00)
[2018-12-13 01:12] VITALS: BP 119/63; PULSE 50; RESP 17; TEMP 36.8; O2SAT 95
--- NOTE | 2018-12-13 01:18 | PC.NURSE ---
Addendum entered by Tammie Busby R.N. 12/13/18 05:12: Has been sleeping most of shift. Remains bradycardic but is asymptomatic. Denies any chest pain/tightness/pressure. Original Note: Patient is alert and oriented. Breath sounds CTA with RA sat of 95%. HRR but bradycardic mostly in 40's although patient reports HR in 30's during echo yesterday; is on telemetry. Denies any symptoms associated with bradycardia. Denies any chest pain/tightness/pressure. Denies nausea. BT present; reports BM yesterday. Denies dysuria, frequency or urgency. Is independent with mobility but reminded to call for assistance if she develops dizziness or lightheadedness. Is scheduled for NM stress test in a.m. and will be NPO after breakfast. Still with moist, pink peeling skin under left abdominal fold. Fall risk score is moderate.
[2018-12-13 04:31] VITALS: BP 110/59; PULSE 49; RESP 17; TEMP 36.4; O2SAT 96
--- NOTE | 2018-12-13 08:15 | CM.DANOTE ---
Addendum entered by Lucia Holt LPN 12/13/18 08:26: Review of ACG/Paula Sampson updated note in COL shows that she is aware of the Witt status and [facility] has been notified of the OBS admission status. Addendum entered by Lucia Holt LPN 12/13/18 08:19: Met now with pt as planned; introduced self and role. Pt is found sitting up in bed, eating breakfast. She is expecting the stress test to take place today at noon. (Review of Dr. Nicholson's progress note of yesterday shows that stress test was not done due to availability. Discussed insurance: pt clarifies that she has [place], it had lapsed and has now been reinstated and she says that I am told there will be no lapse in service. Will alert [facility]CG to same. Pt says her son will be picking her up at d/c. Agreed to check in prn and follow for any d/c needs that may arise. Hospitalist Dr. Ann will be seeing pt today. Original Note: Discharge Planning/Care Management DCP: assessment: case received yesterday and discussed in Team Rounds. EMR reviewed. Pt is a 58 year old female who admitted night of 12/11 to care of hospitalist team. PCP: Chanell Flaherty Payer: listed on face sheet as pvt pay Dr. Nicholson noted in rounds that pt was to have an ECHO and a stress test and then a likely d/c to home setting if results were -. P: check in with pt and follow to continue the assessment process. CM Discharge Assessment Start: 12/13/18 08:14 Freq: Status: Active Protocol: Document 12/13/18 08:14 ITV (Rec: 12/13/18 08:15 ITV [id number]) Discharge Planning Assessment Advance Directives? No History Provided By Patient,Medical Record Prior Living Arrangements House Household Members children,friend(s) Independent with ADL's Yes Is patient alert and oriented? Yes Whiteboard Updated in Patient Room with Yes name and ext. 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
[2018-12-13] MEDS: SODIUM CHLORIDE 0.9% FLUSH 10 ML IV (08:53)
[2018-12-13] MEDS: HEPARIN 5,000 UNIT/ML VIAL 5000 UNIT SUBCUT (08:53)
[2018-12-13] MEDS: ASPIRIN EC 81 MG TABLET PO (08:53)
[2018-12-13 09:00] VITALS: O2SAT 96
[2018-12-13 09:50] VITALS: BP 92/35; PULSE 48; RESP 15; TEMP 36.9; O2SAT 95
--- NOTE | 2018-12-13 12:13 | PM.TREADMILL ---
Cardiac Stress Test Report Referral & Results Date Patient Seen: 12/13/18 Time Patient Seen: 12:13 Requesting provider: Ac Valdes Indication: Chest discomfort Rest ECG: Unremarkable Procedure Note: After both written and verbal informed consent the patient had an IV started by the diagnostic imaging RN and then was hooked up to the treadmill monitoring system. The patient was placed on the treadmill at 1 mile an hour with no elevation and was then injected with the Jyoti scan material. The Cardiolite was then immediately administered. The patient spent an additional 2-3 minutes on the treadmill before being returned to the [facility] in the supine position. The patient had a normal response to all infused materials. Impression: See perfusion imaging report for details regarding possible ischemia Please note: Actual ECG tracings can be found in the PACS system.
[2018-12-13 13:00] VITALS: BP 106/63; PULSE 54; RESP 16; TEMP 36.8; O2SAT 98
--- NOTE | 2018-12-13 15:05 | PM.DS.1 ---
History of Present Illness History of Present Illness Date Patient Seen: 12/11/18 Chief complaint: CHEST PAIN Narrative: Written by Ac TRAN: The patient is a 58-year-old female with PMH of VTach, HLD, obesity (s/p gastric sleeve, 09/06/2018), prior history of tobacco use, diverticulosis (s/p colon resection), GERD, anxiety and depresion. Patient presents out of concern for chest discomfort. Onset of symptoms is acute, initially noted at 4:15 p.m. on 12/11/2018. At time of the event patient was at the gym. She has finished a 15 minutes rigors work out on an elliptical. She sat down to rest and was waiting for the next work-out class. While resting started to feel disoriented and developed mid-sternal chest discomfort. Describes chest discofort as having pressure like quality w/ radiation to bilateral aspects of the neck. Chest discomfort is rated 8/10. Chest discomfort was constant until patient arrived to the ED. It was partially improved with administration of 2 mg of morphine. Associated symptoms included shortness of breath, lightheadedness, and nausea. Patient denies headache, change in vision, palpitations, heaviness or paresthesia of extremities, or abdominal pain. Denies exertional dyspnea at baseline, however unable to ambulate long distances due to arthritic pain. Patient reports inability to climb 2 flights of stairs. Estimates ability to walk 50 ft of moderate exertion. Patient reports having an episode of chest discomfort far to 6 years ago. At that time she underwent a cardiac workup that included a stress test. During her stress test she developed ventricular tachycardia. Consequently, she underwent a cardiac catheterization w/ no intervention. Patient was placed on a medication for rate control. She is unable to recall the name of the medication; however, after 1 year patient has taken herself off the medication on her own accord as she felt the medication was making her tired. Patient was living in [place] at that time and her cardiac evaluation was done at the [facility]. Patient denies prior history of hypertension. No known coronary or valvular heart disease. No history of cerebrovascular events or stroke. No history of diabetes. No history of PE or DVT. No known thyroid abnormalities. Family history is significant for sudden cardiac in her father at the age of 69, cardiac arrhythmia in her brother requiring pacemaker implantation, and TIA/stroke in mother. On 09/06/2018 patient has underwent a gastric sleeve for underlying obesity. Reports weight loss of 35 lb. ED presentation & work-up VS 12/11/18 at 6:17 p.m... T 99F BP 105/60 HR 74 RR 12 SpO2 96% on room air Labs, 12/11/18 @ 1820 WBC 9.7 Hgb 13.6 Plt 182 PT 11.4 INR 1.0 aPTT 34 Na 140 K 4.1 Cl 103 Ca 9.4 Glu 139 CO2 30 Cr 0.7 BUN/Cr 22.9 T. Bili 0.4 AST 21 ALT 8 Alk Phos 78 Trop < 0.012 x2 CXR, 12/11/2018... No acute cardiopulmonary findings In ED received 1 L NS bolus, 324 mg ASA, and 2mg IV morphine Discharge Providers Provider Date of admission: 12/11/18 21:20 Discharge Date: 12/13/18 Primary care physician: Chanell Flaherty PA-C Discharge provider: Allie Ann DO Summary Hospital Course Discharge Diagnosis: 1. Chest pain, acute, present on admission. Resolved. 2. Sinus bradycardia, acuity unclear, present on admission. Active and stable. 3. Hyperlipidemia, chronic, present on admission. Stable. 4. Morbid obesity, chronic, present on admission. Stable and improving. 5. Depression and anxiety, chronic, present on admission. Stable. Hospital Course: Brian Hill is an 58-year-old female with a past medical history of hyperlipidemia, obesity (s/p gastric sleeve, 09/06/2018), prior history of tobacco use, diverticulosis (s/p colon resection), GERD, anxiety and depresion who was admitted for chest pain and bradycardia. 1. Chest pain, acute, present on admission. Resolved. -Acute TN not present given negative troponins and EKG findings. This could represent atypical angina, anxiety, GERD. She had a stress test and a left heart cath about 6 years ago in [place]. She had V. tach during her stress test and subsequent left heart cath showed normal coronaries. -Continued to monitor closley on telemetry. SB throughout hospitalization without other ectopy. -Echocardiogram demonstrated LV is normal in size and function with EF 60-65% without focal wall motion abnormalities, diastolic parameters suggest probable normal left ventricular diastolic function and normal filling pressures, RV is normal in size and function with RVSP 23 mmHg based on an estimated right atrial pressure of 3 mm Hg, left atrium is moderately dilated and right atrial size is normal, moderate mitral regurgitation, no other significant valvular heart disease, aortic root is normal size. -NM medicine exercise and pharmacological stress normal with likely diaphragmatic shadowing on stress and recommended complete rest test outpatient tomorrow to rule out perfusion defect. -Received aspirin 325 mg x 1 in ED. Continued aspirin 81 mg daily. 2. Sinus bradycardia, acuity unclear, present on admission. Active and stable. -Unclear etiology possibly secondary to MADELINE and possibly acute based on history. -EKG demonstrated sinus bradycardia without QTc prolongation or acute ischemic changes. Not on a BB at home. -Consider nutritional deficiency secondary to bariatric surgery (however this is less common after sleeve gastrectomy). -TSH is unremarkable. -Echocardiogram demonstrated LV is normal in size and function with EF 60-65% without focal wall motion abnormalities, diastolic parameters suggest probable normal left ventricular diastolic function and normal filling pressures, RV is normal in size and function with RVSP 23 mmHg based on an estimated right atrial pressure of 3 mm Hg, left atrium is moderately dilated and right atrial size is normal, moderate mitral regurgitation, no other significant valvular heart disease, aortic root is normal size. -Continued to monitor closley on telemetry. SB throughout hospitalization without other ectopy. -Normal heart rate response to exercise portion of stress test. -Ordered atropine if symptomatic but was not and did not receive. -Recommended outpatient heart monitor for 30 days and sleep study. 3. Hyperlipidemia, chronic, present on admission. Stable. -Patient was previously on a statin. She has discontinued it on her own accord in the past year as she felt that her lipids have normalized. In May of 2017 LDL was 165 LDL >100, however ASCVD risk is 3.5% , no statin therapy is recommended at this time. -Discussed and recommended lifestyle modification including diet and exercise. Recent bariatric surgery to likely correct hyperlipidemia over time. 4. Morbid obesity, chronic, present on admission. Stable and improving. -BMI 35.5 -Status post gastric sleeve 08/2018 with 30 lbs weight loss thus far. 5. Depression and anxiety, chronic, present on admission. Stable. -No harmful thoughts towards self or others. -Continued home sertraline 100 mg daily and trazodone 150 mg daily. Exam Vital Signs (past 8 hours): - 12/13/18 09:00 12/13/18 09:50 12/13/18 13:00 Temperature 98.5 F 98.2 F Pulse Rate 48 L 54 L Respiratory Rate 15 16 Blood Pressure 92/35 L 106/63 Pulse Oximetry 96 95 98 Oxygen Delivery Method Room Air Oxygen Flow Rate 0 Narrative Exam Narrative: General: Older female lying in bed and in no acute distress, well-developed, well-nourished, appropriately interactive HEENT: Normocephalic, atraumatic. External ears without defect. Pupils equal, round, and reactive to light. Anicteric sclerae, moist conjunctivae, and no lid lag. Oropharynx free of erythema and cobble stoning with moist mucosa. Neck: Supple with full range of motion. No jugular venous distension. No bruits. No lymphadenopathy or thyromegaly. Cardiovascular: Regular rate and rhythm without murmurs, rubs, or gallops appreciated Pulmonary: Clear to auscultation bilaterally without crackles, wheezes, or rhonchi. Normal respiratory effort without use of accessory muscles. Abdomen: Soft, bowel sounds present, nontender, nondistended. No hepatosplenomegaly or masses appreciated. Extremities: No clubbing, cyanosis, or edema. Skin: Normal temperature, turgor, and texture; no rash, ulcers, or subcutaneous nodules appreciated. Neurological: Cranial nerves grossly intact. Psychiatric: Normal mood and affect. Alert and oriented to person, place, and time. Objective Labs Result Diagrams: 12/12/18 06:07 12/12/18 06:07 Discharge Plan Discharge Plan Patient Disposition: Home Discharge comment: You are being discharged home. Your echocardiogram demonstrated moderate mitral regurgitation (a leaky valve) and a moderately dilated left atrium. Please obtain a sleep study as your left heart dilatation may be related to sleep apnea and sleep apnea can cause bradycardia, as well as, early-onset dementia, congestive heart failure, heart attack and/or stroke. Recommend you be referred to cardiology to establish care due to your cardiac history and prevalent family history and to have a heart monitor placed to monitor your bradycardia and any associated symptoms. Please obtain the rest portion of your stress test tomorrow. Please follow-up with your PCP Chanell Flaherty in the next 1 week to go over your final stress test results, your hospitalization and to place referrals to cardiology and for a sleep study. Your LDL or bad cholesterol is slightly elevated. Please implement lifestyle changes including diet and exercise and if this does not lower it then you may need to be started on a medication to do so. Discharge Med Rec/Prescriptions Prescriptions: Continued sertraline [Zoloft] 100 mg Tablet 100 mg PO DAILY RF: 0 trazodone 100 mg Tablet 150 mg PO DAILY RF: 0 lidocaine [Lidoderm] 5 % adhesive patch,medicated 2 patch TOP Q24H PRN (Reason: Pain (Scale Score 1-3)) RF: 0 Follow up/Referrals: Chanell Flaherty PA-C [Primary Care Provider] - Provider Discharge Instructions Diet: Low-fat, Low-sodium and Low-cholesterol Activity: Activity as tolerated Visit Report/Discharge Packet Instructions: Low-density Lipoprotein Cholesterol, The Mediterranean Diet and Good Health, Cholesterol-lowering Diet, DI for Chest Pain Discharge Data Primary Care Provider: Chanell Flaherty Attending Provider: Ac Valdes Admit Date/Time: 12/11/18 21:20 Discharges patient from system. Discharge Date/Time: 12/13/18 15:37 Quality VTE Deep Vein Thrombosis/Pulmonary Embolism Present on Admission: No
== END 2018-12-13 15:37 | disposition home or self-care (01) ==
LOC: ED 19:28 → AC 21:21
PROVIDERS: Emergency Medicine; Admitting Provider Nurse Practitioner Gerontology; Emergency Provider Emergency Medicine; PCP Physician Assistant; Visit Provider Nurse Practitioner Gerontology
DX: I34.0 Nonrheumatic mitral (valve) insufficiency (principal); R07.9 Chest pain, unspecified; E66.9 Obesity, unspecified; Z87.891 Personal history of nicotine dependence; Z98.890 Other specified postprocedural states; K21.9 Gastro-esophageal reflux disease without esophagitis; F41.9 Anxiety disorder, unspecified; F32.9 Major depressive disorder, single episode, unspecified; Z68.30 Body mass index [BMI] 30.0-30.9, adult
CPT/HCPCS: 36415; 36591; 71045; 78452; 80048; 80053; 80061; 82550; 83690; 83735; 84443; 84484; 85025; 85610; 85730; 93005; 93016; 93017; 93018; 93306; 96361; 96374; 99285; G0378; A9502; J1644; J2270; J2785

== ENCOUNTER 2019-09-01 14:09 | Emergency (ER) | payer OTHER, SELFPAY ==
[2018-12-11 21:58] VITALS: BMI 35.5
[2019-09-01] VITALS (7 sets, daily range): BP systolic 107–126; BP diastolic 52–69; PULSE 60–71; RESP 14–18; TEMP 36.8; O2SAT 94–97
--- NOTE | 2019-09-01 14:28 | ED_ITS ---
HPI - Headache General Chief Complaint: Headache Stated Complaint: massive headache for two days Time Seen by Provider: 09/01/19 14:17 Source: patient Mode of arrival: Ambulatory Limitations: no limitations History of Present Illness HPI Narrative: 59-year-old female here for evaluation 2 days of a headache. She states that she noticed the headache on Monday. She does state that it was somewhat of a gradual onset. She does not remember what she was doing when the headache started. States she does not get headaches. She states the headache is actually worse today than what it was on Monday. No fevers. No sinus congestion. No sore throat. Does have ringing in her years but this is chronic. Does have some photophobia. Has also had some balance issues but this is not new for her. Not on anticoagulation. Takes no medications. Tried some [id number] Tylenol and ibuprofen with minimal if any improvement. Related Data Home Medications Medication Instructions Recorded Confirmed sertraline [Zoloft] 100 mg PO DAILY 11/29/17 12/11/18 trazodone 150 mg PO DAILY 06/28/18 12/11/18 lidocaine [Lidoderm] 2 patch TOP Q24H PRN 12/11/18 12/11/18 Allergies Allergy/AdvReac Type Severity Reaction Status Date / Time levofloxacin AdvReac Severe Agitated Verified 12/11/18 18:17 miconazole [From Monistat 7] AdvReac rash Verified 12/11/18 18:17 Review of Systems Constitutional Constitutional: Denies fatigue, Denies fever(s), Reports headache(s) and Denies weakness Eyes Eyes: Denies blurry vision, Denies change in vision and Reports photophobia ENT Ears, Nose, Mouth, and Throat: Denies vertigo, Denies dizziness, Reports headache(s), Denies disequilibrium, Reports tinnitus, Denies sinus pain and Denies sore throat Cardiovascular Cardiovascular: Denies chest pain, Denies syncope and Denies dyspnea Respiratory Respiratory: Denies cough and Denies dyspnea Gastrointestinal Gastrointestinal: Denies abdominal pain, Denies nausea and Denies vomiting Genitourinary Genitourinary: Denies dysuria Musculoskeletal Musculoskeletal: Denies myalgias, Denies arthralgias, Denies numbness and Denies tingling Integumentary/Breasts Skin/Breast: Denies lesions and Denies rash Neurologic Neurologic: Denies behavioral changes, Denies confusion, Denies vertigo, Denies dizziness, Denies syncope, Reports headache(s), Denies focal weakness, Denies memory loss, Denies numbness, Denies tingling, Denies paresthesias, Denies disequilibrium and Denies weakness Psychiatric Psychiatric: Denies behavioral changes, Denies confusion and Denies memory loss Endocrine Endocrine: Denies fatigue Hematologic/Lymphatic Hematologic/Lymphatic: Denies easy bleeding and Denies easy bruising Allergic/Immunologic Allergic/Immunologic: Denies urticaria Patient History Medical History Depression (Chronic) Diverticulosis (Chronic) Hypercholesterolemia (Chronic) Obesity (BMI 30-39.9) (Chronic) Social History household members: children and friend(s) Smoking Status: Former smoker alcohol intake: current Smoking Status: Former smoker alcohol intake frequency: holidays/special occasions only Substance Use Type: marijuana Exam Initial Vital Signs Initial Vital Signs: Vital Signs Temperature 98.2 F 09/01/19 14:19 Pulse Rate 62 09/01/19 14:19 Respiratory Rate 14 09/01/19 14:19 Blood Pressure 126/65 09/01/19 14:19 Pulse Oximetry 97 09/01/19 14:19 Const General: cooperative, comfortable and well developed Limitations: mental status not altered HENWA Head: normal to inspection and normocephalic Eyes Pupils: PERRL EOM: EOM intact bilaterally Resp Effort & Inspection: normal respiratory effort Auscultation: clear to auscultation bilaterally Cardio Rate: regular rate Rhythm: regular rhythm GI Inspection: non-distended Palpation: soft Skin Lesions: no lesions Rashes: no rashes Neuro General: alert, awake and oriented x3 Cranial Nerves: CN's II-XI intact bilaterally Cognition: normal cognition Speech: speech normal Gait: normal gait Motor: muscle tone normal throughout Sensory Exam: no sensory deficits noted Extrem General: normal to inspection and capillary refill normal Psych Appearance: grossly normal and well kempt Scores GCS Milo coma scale eye opening: Spontaneous [place] coma scale verbal response: Orientated [place] coma scale motor response: Obey commands Milo coma scale total score: 15 Course Orders Ordered: ED Orders 09/01/19 14:28 Basic Metabolic Panel Stat Complete Blood Count AUTO DIFF Stat Partial Thromboplastin Time Stat Prothrombin Time INR Stat 09/01/19 14:29 CT head/brain wo con Stat Discontinued Medications Acetaminophen (Tylenol) 975 mg PO NOW ONE Stop: 09/01/19 14:29 Last Admin: 09/01/19 14:41 Dose: 975 mg Documented by: JAMSHID Diphenhydramine HCl (Benadryl) 25 mg IV NOW ONE Stop: 09/01/19 14:29 Last Admin: 09/01/19 14:41 Dose: 25 mg Documented by: JAMSHID Haloperidol (Haldol) 2.5 mg IV NOW ONE Stop: 09/01/19 16:35 Last Admin: 09/01/19 16:41 Dose: 2.5 mg Documented by: JAMSHID Sodium Chloride (Normal Saline 0.9%) 1,000 mls @ 1,000 mls/hr IV BOLUS ONE Stop: 09/01/19 15:27 Last Infusion: 09/01/19 16:12 Dose: 0 mls/hr Documented by: Admin: 09/01/19 14:41 Dose: 1,000 mls/hr Documented by: DANIASENCathleen Ketorolac Tromethamine (Toradol) 30 mg IV NOW ONE Stop: 09/01/19 15:41 Last Admin: 09/01/19 16:06 Dose: 30 mg Documented by: JAMSHID Metoclopramide HCl (Reglan) 10 mg IV NOW ONE Stop: 09/01/19 14:29 Last Admin: 09/01/19 14:41 Dose: 10 mg Documented by: JAMSHID Vital Signs Vital signs: Vital Signs - 8 hr 09/01/19 14:19 09/01/19 15:03 09/01/19 15:04 Temperature 98.2 F Pulse Rate 62 60 64 Respiratory Rate 14 16 18 Blood Pressure 126/65 Blood Pressure [Left Arm] 114/53 L 126/59 L Pulse Oximetry 97 95 09/01/19 15:30 09/01/19 16:24 09/01/19 16:46 Temperature Pulse Rate 71 60 60 Respiratory Rate 18 18 16 Blood Pressure Blood Pressure [Left Arm] 120/59 L 107/52 L 111/69 Pulse Oximetry 95 MDM - Headache Lab Data Attestation: I reviewed the patient's lab results. Result diagrams: 09/01/19 14:28 09/01/19 14:28 Labs: Lab Results 09/01/19 09/01/19 09/01/19 Range/Units 14:28 14:28 14:28 WBC 11.1 H (4.5-11.0) X10^3/uL RBC 4.60 (4.0-5.2) X10^6/uL Hgb 14.0 (12.0-16.0) g/dL Hct 41.7 (36-46) % MCV 90.7 (80-100) fL MCH 30.4 (26-34) PG MCHC 33.6 (30-36) % RDW 13.2 (11.6-14.8) % Plt Count 226 (150-400) X10^3/uL Neut % (Auto) 69.9 (50-75) % Lymph % (Auto) 22.0 L (25-40) % [place] % (Auto) 5.3 (3-14) % Eos % (Auto) 2.1 (2-4) % Baso % (Auto) 0.7 (0-2) % Neut # (Auto) 7800 H (3766-0394) /uL Lymph # (Auto) 2500 (7027-2256) /uL [place] # (Auto) 600 (0-900) /uL Eos # (Auto) 200 (0-450) /uL Baso # (Auto) 100 (0-100) /uL PT 12.0 (10.1-12.7) SECONDS INR 1.0 (0.9-1.3) APTT 33 (26.4-36.2) SECONDS Sodium 140 (137-145) mmol/L Potassium 4.3 (3.4-5.1) mmol/L Chloride 106 (98-107) mmol/L Carbon Dioxide 25 (22-32) mmol/L BUN 25 H (7-17) mg/dL Creatinine 0.75 (0.52-1.04) mg/dL Estimated GFR > 60.0 (>60) mL/min BUN/Creatinine Ratio 33.3 H (6-22) Glucose 121 H (70-100) mg/dL Calcium 9.3 (8.4-10.2) mg/dL Imaging Data CT scan - head: Radiologist's Impression: [address] [address] [address] Scan Report Signed Patient: Brian Hill LMR#: [id number] : 1Acct:[id number] Age/Sex: 59 / FDate of Service: 09/01/19 Loc: ED Accession Number: [id number] Procedure: CT head/brain wo con Ordering Provider: Joe Arechiga D.O. PROCEDURE: CT HEAD/BRAIN WO CON INDICATIONS: Headache eval for SAH TECHNIQUE: Noncontrast 4.5 mm thick angled axial sections acquired from the foramen magnum to the vertex, with coronal and sagittal reformats. For radiation dose reduction, the following was used: automated exposure control, adjustment of mA and/or kV according to patient size. COMPARISON: None. FINDINGS: Image quality: Diagnostic. CSF spaces: Basal cisterns are patent. No extra-axial fluid collections. Ventricles are normal in size and shape. Brain: No midline shift. No intracranial masses or hemorrhage. Tim-white matter interface is normal. Skull and face: Calvarium and visualized facial bones are intact, without suspicious lesions. Sinuses: Visualized sinuses and mastoids are clear. IMPRESSION: Negative head CT. No acute intracranial hemorrhage. Dictated by: Matthew Davis M.D. on 09/01/2019 at 13:52 Approved by: Matthew Davis M.D. on 09/01/2019 at 13:53 MDM Narrative Medical decision making narrative: Patient without fever. Physical exam is not consistent with meningitis. No trauma. Not on anticoagulation. CT scan of the head shows no signs of an acute intracranial pathology. She has had symptoms for the past 2 days. I discussed with her the concerns for subarachnoid hemorrhage. We did discuss the lumbar puncture. We discussed the risks and benefits of this procedure. After this discussion the patient opted not to have the lumbar puncture. She does understand that we could potentially be missing a subarachnoid hemorrhage in the consequences of this if we do not do the lumbar puncture. She again decided not to have this procedure performed. She did report improvement of her symptoms after the medications. I feel we can hold on further workup for now. We did discuss the use of decongestants. She was given return precautions and follow-up instructions. She expressed understanding and agreement plan. Discharge Plan Departure Patient Disposition: Home Clinical Impression: Headache Qualifiers: Headache type: unspecified Headache chronicity pattern: unspecified pattern Intractability: not intractable Qualified Code(s): R51 - Headache Instructions: DI for Headache Activity Restrictions/Additional Instructions: Continue all of your medications as directed. Recommend you contact your primary provider for follow-up. Return to the emergency department for any new or worsening symptoms Prescriptions: No Action sertraline [Zoloft] 100 mg Tablet 100 mg PO DAILY RF: 0 trazodone 100 mg Tablet 150 mg PO DAILY RF: 0 lidocaine [Lidoderm] 5 % adhesive patch,medicated 2 patch TOP Q24H PRN (Reason: Pain (Scale Score 1-3)) RF: 0
[2019-09-01 14:37] LABS: Add Manual Diff / Slide Review NO; Basophils Absolute Auto 100 /uL (0-100); Basophils Percent Auto 0.7 % (0-2); Eosinophils Absolute Auto 200 /uL (0-450); Eosinophils Percent Auto 2.1 % (2-4); Hematocrit 41.7 % (36-46); Lymphocytes Absolute Auto 2500 /uL (1100-4500); Mean Corpuscular HGB Conc 33.6 % (30-36); Mean Corpuscular Hemoglobin 30.4 PG (26-34); Mean Corpuscular Volume 90.7 fL (80-100); Monocytes Absolute Auto 600 /uL (0-900); Monocytes Percent Auto 5.3 % (3-14); Neutrophils Absolute Auto 7800 /uL (1500-7000); Neutrophils Percent Auto 69.9 % (50-75); Platelet Count 226 X10^3/uL (150-400); Red Cell Distribution Width 13.2 % (11.6-14.8); White Blood Cell Count 11.1 X10^3/uL (4.5-11.0)
[2019-09-01] MEDS: ACETAMINOPHEN 325 MG TABLET 975 MG PO (14:41)
[2019-09-01] MEDS: diphenhydrAMINE 50 MG/ML VIAL 25 MG IV (14:41)
[2019-09-01] MEDS: METOCLOPRAMIDE 10 MG/2 ML INJ IV (14:41)
[2019-09-01] MEDS: SODIUM CHLORIDE 0.9% 1,000 ML 1000 ML IV (14:41)
[2019-09-01 14:48] LABS: PTT Partial Thromboplastin Tim 33 SECONDS (26.4-36.2)
[2019-09-01 14:50] LABS: BUN Creatinine Ratio 33.3 (6-22); Blood Urea Nitrogen 25 mg/dL (7-17); Calcium 9.3 mg/dL (8.4-10.2); Carbon Dioxide 25 mmol/L (22-32); Chloride 106 mmol/L (98-107); Estimated Glomerular Filt Rate > 60.0 mL/min (>60); Glucose 121 mg/dL (70-100); HEMOLYSIS < 15 (0-50); Potassium 4.3 mmol/L (3.4-5.1); Sodium 140 mmol/L (137-145)
[2019-09-01] MEDS: KETOROLAC 60 MG/2 ML VIAL 30 MG IV (16:06)
[2019-09-01] MEDS: HALOPERIDOL 5 MG/ML VIAL 2.5 MG IV (16:41)
== END 2019-09-01 17:52 | disposition home or self-care (01) ==
PROVIDERS: Emergency Provider Emergency Medicine
DX: R51 Headache (principal)
CPT/HCPCS: 36415; 70450; 80048; 85025; 85610; 85730; 96361; 96374; 96375; 99284; J1200; J1630; J1885; J2765

== ENCOUNTER → 2020-01-31 16:00 | Outpatient (CLI) | payer OTHER, SELFPAY ==
[2018-12-11 21:58] VITALS: BMI 35.5
--- NOTE | 2020-01-31 | DI.RAD.S_ITS ---
PROCEDURE: XR HAND RT MIN 3V INDICATIONS: pain in right thumb TECHNIQUE: 3 views of the hand(s) acquired. COMPARISON: None. FINDINGS: Bones: No fractures or dislocations. Carpal bones are normally aligned. No suspicious bony lesions. Soft tissues: No suspicious soft tissue calcifications. IMPRESSION: No acute abnormality of the right hand Dictated by: Mayco Narayan M.D. on 01/31/2020 at 16:25 Approved by: Mayco Narayan M.D. on 01/31/2020 at 16:28
== END ==
PROVIDERS: PCP Physician Assistant; Referring Provider Physician Assistant; Visit Provider Physician Assistant
DX: M79.644 Pain in right finger(s) (principal); G60.3 Idiopathic progressive neuropathy; F41.9 Anxiety disorder, unspecified; E78.2 Mixed hyperlipidemia
CPT/HCPCS: 73130; 80053; 80061; 83036; 84443; 85025

== ENCOUNTER → 2020-01-31 19:33 | Outpatient (ROUT) | payer OTHER, SELFPAY ==
[2018-12-11 21:58] VITALS: BMI 35.5
[2020-01-31 20:02] LABS: Add Manual Diff / Slide Review NO; Basophils Absolute Auto 100 /uL (0-100); Basophils Percent Auto 0.5 % (0-2); Eosinophils Absolute Auto 200 /uL (0-450); Eosinophils Percent Auto 1.8 % (2-4); Hemoglobin 14.2 g/dL (12.0-16.0); Lymphocytes Absolute Auto 2900 /uL (1100-4500); Lymphocytes Percent Auto 26.5 % (25-40); Mean Corpuscular Hemoglobin 29.9 PG (26-34); Mean Corpuscular Volume 90.7 fL (80-100); Monocytes Absolute Auto 600 /uL (0-900); Monocytes Percent Auto 5.3 % (3-14); Neutrophils Absolute Auto 7300 /uL (1500-7000); Neutrophils Percent Auto 65.9 % (50-75); Platelet Count 220 X10^3/uL (150-400); Red Blood Cell Count 4.74 X10^6/uL (4.0-5.2); Red Cell Distribution Width 13.8 % (11.6-14.8); White Blood Cell Count 11.1 X10^3/uL (4.5-11.0)
[2020-01-31 20:09] LABS: Alanine Aminotransferase 16 IU/L (<35); Albumin 4.3 g/dL (3.5-5.0); Albumin Globulin Ratio 1.3 (1.0-2.8); Alkaline Phosphatase 96 U/L (38-126); Aspartate Aminotransferase 31 IU/L (14-36); BUN Creatinine Ratio 40.8 (6-22); Bilirubin Total 0.4 mg/dL (0.2-1.3); Blood Urea Nitrogen 29 mg/dL (7-17); Calcium 9.4 mg/dL (8.4-10.2); Carbon Dioxide 29 mmol/L (22-32); Chloride 103 mmol/L (98-107); Cholesterol 236 mg/dL (140-199); Estimated Glomerular Filt Rate > 60.0 mL/min (>60); Globulin 3.4 g/dL (1.7-4.1); Glucose 97 mg/dL (70-100); HDL Cholesterol 34 mg/dL (40-60); HEMOLYSIS 29 (0-50); LDL Cholesterol Calculated 168 mg/dL (<100); Potassium 4.4 mmol/L (3.4-5.1); Sodium 140 mmol/L (137-145); Total Protein 7.7 g/dL (6.3-8.2); Triglycerides 171 mg/dL (35-150)
[2020-01-31 20:17] LABS: Hemoglobin A1C% w Est Avg Glu 5.4 % (4.0-6.0)
[2020-01-31 20:40] LABS: TSH w/ Reflex to FT4 2.39 uIU/mL (0.47-4.68)
== END ==
PROVIDERS: PCP Physician Assistant; Visit Provider Physician Assistant
DX: G60.3 Idiopathic progressive neuropathy (principal); F41.9 Anxiety disorder, unspecified; E78.2 Mixed hyperlipidemia
CPT/HCPCS: 80053; 80061; 83036; 84443; 85025

== ENCOUNTER 2020-06-17 10:02 | Emergency (ER) | payer SELFPAY ==
[2018-12-11 21:58] VITALS: BMI 35.5
[2020-06-17] VITALS (18 sets, daily range): BP systolic 116–173; BP diastolic 56–96; PULSE 59–95; RESP 9–23; TEMP 37.4; O2SAT 90–98; BMI 36.2
--- NOTE | 2020-06-17 10:04 | DI.RAD.S_ITS ---
PROCEDURE: XR CHEST 1V INDICATIONS: chest pain TECHNIQUE: One view of the chest was acquired. COMPARISON: [facility], , XR CHEST 1V, 12/11/2018, 18:21. [facility], , CHEST 1 VIEW, 08/27/2008, 10:53. FINDINGS: Surgical changes and devices: Pacemaking device and dual chamber leads normal. Lungs and pleura: Lungs are clear. No pleural effusions or pneumothorax. Mediastinum: Mediastinal contours appear normal. Heart size is normal. Bones and chest wall: No suspicious bony lesions. Overlying soft tissues appear unremarkable. IMPRESSION: No source of chest pain found. Dictated by: Maco Johnson M.D. on 06/17/2020 at 10:27 Approved by: Maco Johnson M.D. on 06/17/2020 at 10:27
--- NOTE | 2020-06-17 10:19 | ED_ITS ---
HPI - Chest Pain General Chief Complaint: Chest Pain Stated Complaint: Thinks shes having a heart attack Time Seen by Provider: 06/17/20 10:05 Source: patient Mode of arrival: EMS Limitations: no limitations History of Present Illness HPI narrative: Patient is a 60-year-old female with history of pacemaker presenting today with sudden onset of chest pain ongoing for 30 minutes. 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 She says she does feel this when her pacemaker does is regular checks but it was not that time of day. It has continued. She felt pain down both of her arms. It has been constant but now seems to be letting up. MD complaint: chest pain Onset (ago): minute(s) (30) Duration: constant and improved Onset: during rest Pain location: substernal Quality: sharp Pain radiation: RUE, LUE, neck and jaw/teeth Exacerbating factors: nothing Related Data Home Medications Medication Instructions Recorded Confirmed sertraline [Zoloft] 100 mg PO DAILY 11/29/17 12/11/18 trazodone 150 mg PO DAILY 06/28/18 12/11/18 lidocaine [Lidoderm] 2 patch TOP Q24H PRN 12/11/18 12/11/18 Allergies Allergy/AdvReac Type Severity Reaction Status Date / Time levofloxacin AdvReac Severe Agitated Verified 12/11/18 18:17 miconazole [From Monistat 7] AdvReac rash Verified 12/11/18 18:17 Review of Systems Review of Systems Narrative: GENERAL: Denies chills, fatigue, malaise, fever, sweats, travel HEENT: Denies sinus pain, ear pain, sore throat, difficulty swallowing, neck pain RESPIRATORY: Denies dyspnea, cough, wheezing, hemoptysis, sputum. CARDIOVASCULAR: See HPI GASTROINTESTINAL: Denies nausea, vomiting, abdominal pain, diarrhea, constipation, melena. : Denies dysuria, frequency, incontinence, hematuria, urinary retention, flank pain. MUSCULOSKELETAL: Denies weakness, joint pain, or bony pain SKIN: No rash, no erythema, no pruritus NEUROLOGIC: Denies weakness, dizziness, headache, numbness, change in speech, confusion PSYCHIATRIC: No concerning psychosocial issues. 12 point review of systems is negative except for those stated above and HPI Patient History Medical History (Updated 06/17/20 @ 15:15 by Whitney Olson DO) Depression Diverticulosis Hypercholesterolemia Obesity (BMI 30-39.9) Surgical History Perforated diverticulum Status post cholecystectomy Status post colon resection Status post tubal ligation Social History household members: children and friend(s) Smoking Status: Former smoker alcohol intake: current Smoking Status: Former smoker alcohol intake frequency: holidays/special occasions only Substance Use Type: marijuana Exam Initial Vital Signs Initial Vital Signs: Vital Signs Pulse Oximetry 97 06/17/20 10:08 GENERAL: Alert anxious 60-year-old female appears in severe pain HEENT: Head atraumatic,EOMI, pupils reactive, face symmetric, moist mucous membranes CARDIOVASCULAR: Regular rate and rhythm without murmurs, rubs or gallops. RESPIRATORY: Breath sounds equal bilaterally, no wheezes rales or rhonchi. ABDOMEN: Soft, nontender. Normoactive bowel sounds all 4 quadrants. No guarding or rebound. EXTREMITIES: Normal range of motion, no clubbing or edema. Neurovascularly intact NEUROLOGICAL: Alert and oriented x4.Normal gait and speech. Cranial nerves II through XII grossly intact. SKIN: Warm, dry, no laceration, no petechiae, no rashes or lesions. Course Orders Ordered: ED Orders 06/17/20 10:04 XR chest 1V Stat EKG-12 Lead Stat 06/17/20 10:15 Complete Blood Count AUTO DIFF Stat Comprehensive Metabolic Panel Stat Lipase Stat Partial Thromboplastin Time Stat Prothrombin Time INR Stat Troponin & CK Cardiac Panel Stat 06/17/20 11:26 CT angio chest abdomen pelvis Stat 06/17/20 12:13 Troponin I Stat 06/17/20 12:14 EKG-12 Lead Routine 06/17/20 13:00 COVID19 Stat 06/17/20 14:56 EKG-12 Lead Routine Discontinued Medications Aspirin (Aspirin 81 Mg Chew Tab) 324 mg PO NOW ONE Stop: 06/17/20 10:20 Last Admin: 06/17/20 10:30 Dose: 324 mg Documented by: CVANCE Atorvastatin Calcium (Atorvastatin 20 Mg Tablet) 40 mg PO NOW ONE Stop: 06/17/20 13:24 Last Admin: 06/17/20 13:33 Dose: 40 mg Documented by: RACHEL Heparin Sodium (Porcine) (Heparin 5,000 Unit/Ml Vial) 5,000 unit IV NOW ONE Stop: 06/17/20 12:46 Last Admin: 06/17/20 12:57 Dose: 5,000 unit Documented by: RACHEL Heparin Sodium/Dextrose (Heparin Drip) 25,000 unit in 500 mls @ 20 mls/hr IV CONT SHASHI; Protocol Last Admin: 06/17/20 12:58 Dose: 1,000 units/hr, 20 mls/hr Documented by: RACHEL Nitroglycerin (Nitroglycerin 0.4 Mg Sl Tab) 0.4 mg SL [id number] PRN PRN Reason: Chest Pain Last Admin: 06/17/20 14:55 Dose: 0.4 mg Documented by: Admin: 06/17/20 11:04 Dose: 0.4 mg Documented by: Admin: 06/17/20 10:30 Dose: 0.4 mg Documented by: RACHEL Vital Signs Vital signs: Vital Signs - 8 hr 06/17/20 11:00 06/17/20 11:43 06/17/20 11:44 Pulse Rate 70 59 L Respiratory Rate 9 L 10 L Blood Pressure 129/62 123/62 Pulse Oximetry 95 90 L 97 06/17/20 12:00 06/17/20 12:30 06/17/20 13:00 Pulse Rate 64 63 61 Respiratory Rate 19 19 19 Blood Pressure Pulse Oximetry 96 97 96 06/17/20 13:05 06/17/20 13:30 06/17/20 14:00 Pulse Rate 62 60 61 Respiratory Rate 23 20 15 Blood Pressure 121/67 122/67 Pulse Oximetry 96 96 96 06/17/20 14:01 06/17/20 14:30 06/17/20 15:07 Pulse Rate 66 60 88 Respiratory Rate 18 18 Blood Pressure 116/56 L 128/58 L Pulse Oximetry 95 95 95 06/17/20 15:08 Pulse Rate 78 Respiratory Rate 11 L Blood Pressure 126/63 Pulse Oximetry 95 MDM - Chest Pain Lab Data Attestation: I reviewed the patient's lab results. Result diagrams: 06/17/20 10:15 06/17/20 10:15 Labs: Lab Results 06/17/20 06/17/20 06/17/20 Range/Units 10:15 10:15 10:15 WBC 11.1 H (4.5-11.0) X10^3/uL RBC 5.14 (4.0-5.2) X10^6/uL Hgb 15.7 (12.0-16.0) g/dL Hct 46.9 H (36-46) % MCV 91.2 (80-100) fL MCH 30.5 (26-34) PG MCHC 33.5 (30-36) % RDW 13.2 (11.6-14.8) % Plt Count 240 (150-400) X10^3/uL Neut % (Auto) 62.9 (50-75) % Lymph % (Auto) 25.6 (25-40) % [place] % (Auto) 6.3 (3-14) % Eos % (Auto) 4.6 H (2-4) % Baso % (Auto) 0.6 (0-2) % Neut # (Auto) 7000 (7356-1770) /uL Lymph # (Auto) 2800 (8441-6572) /uL [place] # (Auto) 700 (0-900) /uL Eos # (Auto) 500 H (0-450) /uL Baso # (Auto) 100 (0-100) /uL PT 11.5 (10.1-12.7) SECONDS INR 1.0 (0.9-1.3) APTT 35 (26.4-36.2) SECONDS Sodium 141 (137-145) mmol/L Potassium 4.1 (3.4-5.1) mmol/L Chloride 105 (98-107) mmol/L Carbon Dioxide 27 (22-32) mmol/L BUN 17 (7-17) mg/dL Creatinine 0.67 (0.52-1.04) mg/dL Estimated GFR > 60.0 (>60) mL/min BUN/Creatinine Ratio 25.4 H (6-22) Glucose 149 H (80-110) mg/dL Calcium 9.1 (8.4-10.2) mg/dL Total Bilirubin 0.3 (0.2-1.3) mg/dL AST 31 (14-36) IU/L ALT 20 (<35) IU/L Alkaline Phosphatase 131 H (38-126) U/L Total Creatine Kinase 142 H (30-135) U/L CK-MB (CK-2) 3.30 H (<2.37) ng/mL CK-MB (CK-2) Rel Index 2.3 (1.5-5.0) % Troponin I 0.013 (0.01-0.034) ng/mL Total Protein 8.5 H (6.3-8.2) g/dL Albumin 4.8 (3.5-5.0) g/dL Globulin 3.7 (1.7-4.1) g/dL Albumin/Globulin Ratio 1.3 (1.0-2.8) Lipase 260 (23-300) U/L SARS-CoV-2 (PCR) (Negative) 06/17/20 06/17/20 Range/Units 12:13 13:00 WBC (4.5-11.0) X10^3/uL RBC (4.0-5.2) X10^6/uL Hgb (12.0-16.0) g/dL Hct (36-46) % MCV (80-100) fL MCH (26-34) PG MCHC (30-36) % RDW (11.6-14.8) % Plt Count (150-400) X10^3/uL Neut % (Auto) (50-75) % Lymph % (Auto) (25-40) % [place]cho % (Auto) (3-14) % Eos % (Auto) (2-4) % Baso % (Auto) (0-2) % Neut # (Auto) (5295-7306) /uL Lymph # (Auto) (9144-8216) /uL Concho # (Auto) (0-900) /uL Eos # (Auto) (0-450) /uL Baso # (Auto) (0-100) /uL PT (10.1-12.7) SECONDS INR (0.9-1.3) APTT (26.4-36.2) SECONDS Sodium (137-145) mmol/L Potassium (3.4-5.1) mmol/L Chloride (98-107) mmol/L Carbon Dioxide (22-32) mmol/L BUN (7-17) mg/dL Creatinine (0.52-1.04) mg/dL Estimated GFR (>60) mL/min BUN/Creatinine Ratio (6-22) Glucose (80-110) mg/dL Calcium (8.4-10.2) mg/dL Total Bilirubin (0.2-1.3) mg/dL AST (14-36) IU/L ALT (<35) IU/L Alkaline Phosphatase (38-126) U/L Total Creatine Kinase (30-135) U/L CK-MB (CK-2) (<2.37) ng/mL CK-MB (CK-2) Rel Index (1.5-5.0) % Troponin I 0.313 H* (0.01-0.034) ng/mL Total Protein (6.3-8.2) g/dL Albumin (3.5-5.0) g/dL Globulin (1.7-4.1) g/dL Albumin/Globulin Ratio (1.0-2.8) Lipase (23-300) U/L SARS-CoV-2 (PCR) Negative (Negative) Imaging Data Chest x-ray: Radiologist's Impression: PROCEDURE: XR CHEST 1V INDICATIONS: chest pain TECHNIQUE: One view of the chest was acquired. COMPARISON: [facility], XR CHEST 1V, 12/11/2018, 18:21. [facility], CHEST 1 VIEW, 08/27/2008, 10:53. FINDINGS: Surgical changes and devices: Pacemaking device and dual chamber leads normal. Lungs and pleura: Lungs are clear. No pleural effusions or pneumothorax. Mediastinum: Mediastinal contours appear normal. Heart size is normal. Bones and chest wall: No suspicious bony lesions. Overlying soft tissues appear unremarkable. IMPRESSION: No source of chest pain found. Dictated by: Maco Johnson M.D. on 06/17/2020 at 10:27 Approved by: Maco Johnson M.D. on 06/17/2020 at 10:27 CT scan - abdomen/pelvis: Radiologist's Impression: PROCEDURE: CT ANGIO CHEST ABDOMEN PELVIS INDICATIONS: severe pain, dissection TECHNIQUE: Precontrast 5 mm thick sections acquired from the lung apices to the iliac crests. After the administration of intravenous contrast, 2.5 mm thick sections again acquired from the lung apices to the iliac crests. Maximum intensity projection (MIP) oblique sagittal and coronal reformats were then acquired. For radiation dose reduction, the following was used: automated exposure control. COMPARISON: [facility], CT, CT ABDOMEN PELVIS W CON, 06/28/2018, 17:43. FINDINGS: Image quality: Excellent. AORTA: Aorta demonstrates no evidence of hemodynamically significant stenosis, vascular occlusion, aneurysmal dilation or dissection within the thoracic or abdominal portions. Mild areas of atherosclerotic calcifications are noted. With CHEST: Lungs and pleura: No acute airspace opacities. No pleural effusions or pneumothorax. Central and peripheral airways are patent and normal in caliber. Mediastinum: Heart size is normal. No pericardial effusion. No mediastinal or hilar adenopathy by size criteria. Central pulmonary arteries are normal in size. Esophagus is normal in caliber. No hiatal hernias. Bones and chest wall: No axillary adenopathy by size criteria. Thyroid gland is unremarkable . No suspicious bony lesions. No vertebral body compression fractures. ABDOMEN: Vasculature: Celiac trunk and mesenteric arteries are patent. Renal arteries are also patent. Solid organs: Liver is normal in size and enhancement. Gallbladder has been removed . Biliary system is non dilated. Pancreas enhances normally. Spleen is normal in size and enhancement. No adrenal nodules. Both kidneys are normal in size and enhancement, without hydronephrosis. Peritoneum and bowel: No free fluid or air. Bowel loops are normal in caliber and wall thickness. Nodes and vessels: No retroperitoneal or mesenteric adenopathy by size criteria. Inferior vena cava is normal in morphology. Miscellaneous: Bowel containing ventral hernia without obstruction, incarceration or strangulation. PELVIS: Genitourinary: Bladder wall thickness is normal. Miscellaneous: No inguinal hernias or adenopathy. No ventral hernias. Bones: No suspicious bony lesions. No vertebral body compression fractures. IMPRESSION: 1. Aorta demonstrates no areas of hemodynamically significant stenosis, vascular occlusion, aneurysmal dilation or dissection. 2. No acute visualized intra-abdominal or pelvic process. Dictated by: Charmaine Chance M.D. on 06/17/2020 at 11:56 ECG Data Attestation: I personally reviewed and interpreted this ECG as follows: Prior ECG tracings: available for review Interpretation: Normal sinus rhythm rate 91 p.r. interval 140 QRS 92 QTC 437 peaked T-waves noted in V3 V4 and V5 [address] depression or elevation EKG 2. Sinus rhythm rate 76 improvement of T-waves, possible ST elevation in lead [address] depression EKG 3. Sinus rhythm ST elevation in aVL EKG 4. ST elevation in aVL and lead 1 with T-wave inversion in AVR MDM Narrative Medical decision making narrative: Patient initially in quite severe chest pain she is given 2 nitroglycerin which relieved her pain completely. CT angio negative for dissection. She has remained pain-free. Initially thought to be NSTEMI, patient had recurrence of chest pain around 230 re-evaluation of EKGs does show is subtle ST elevation in [address] depression. Dr. tamia barkley was re-contacted Q agrees that there is ST elevation in agrees with immediate transfer to [facility] emergency department [address] Dr. guevara notified of patient an elevated troponin [address] [place] [address] Gr 14[address] Dr Rubin, hospitalist at [facility] updated patient's symptoms test results agrees with admission and transfer 1500 dr guevara, agrees with ST elevation in 1 in aVL recommend stat transfer to hospital 1510 Dr Garcia, ER physician accepts patient for transfer Critical Care Time Critical Care Time Critical Care Time: Yes Total Critical Care Time: 45 Attestation: The high probability of a clinically significant, sudden or life threatening deterioration of the [cardiovascular] system(s) required my full and direct attention, intervention and personal management. The aggregate critical care time was [45] minutes. This time is in addition to time spent performing reported procedures but includes the following: [x] Data Review and interpretation [x] Patient assessment and monitoring of vital signs [x] Documentation [x] Medication orders and management Discharge Plan Departure Patient Disposition: [facility] Clinical Impression: ST elevation KS (STEMI) Prescriptions: No Action sertraline [Zoloft] 100 mg Tablet 100 mg PO DAILY RF: 0 trazodone 100 mg Tablet 150 mg PO DAILY RF: 0 lidocaine [Lidoderm] 5 % adhesive patch,medicated 2 patch TOP Q24H PRN (Reason: Pain (Scale Score 1-3)) RF: 0 Referrals: Chanell Flaherty PA-C [Primary Care Provider] -
[2020-06-17 10:22] LABS: Add Manual Diff / Slide Review NO; Basophils Absolute Auto 100 /uL (0-100); Basophils Percent Auto 0.6 % (0-2); Eosinophils Absolute Auto 500 /uL (0-450); Eosinophils Percent Auto 4.6 % (2-4); Hematocrit 46.9 % (36-46); Hemoglobin 15.7 g/dL (12.0-16.0); Lymphocytes Absolute Auto 2800 /uL (1100-4500); Lymphocytes Percent Auto 25.6 % (25-40); Mean Corpuscular HGB Conc 33.5 % (30-36); Mean Corpuscular Hemoglobin 30.5 PG (26-34); Mean Corpuscular Volume 91.2 fL (80-100); Monocytes Absolute Auto 700 /uL (0-900); Monocytes Percent Auto 6.3 % (3-14); Neutrophils Absolute Auto 7000 /uL (1500-7000); Neutrophils Percent Auto 62.9 % (50-75); Platelet Count 240 X10^3/uL (150-400); Red Blood Cell Count 5.14 X10^6/uL (4.0-5.2); Red Cell Distribution Width 13.2 % (11.6-14.8); White Blood Cell Count 11.1 X10^3/uL (4.5-11.0)
[2020-06-17 10:27] LABS: Prothrombin Time 11.5 SECONDS (10.1-12.7)
[2020-06-17 10:30] LABS: PTT Partial Thromboplastin Tim 35 SECONDS (26.4-36.2)
[2020-06-17] MEDS: NITROGLYCERIN 0.4 MG SL TAB SL ×3 (10:30→14:55)
[2020-06-17] MEDS: ASPIRIN 81 MG CHEW TAB 324 MG PO (10:30)
[2020-06-17 10:33] LABS: Alanine Aminotransferase 20 IU/L (<35); Albumin 4.8 g/dL (3.5-5.0); Albumin Globulin Ratio 1.3 (1.0-2.8); Alkaline Phosphatase 131 U/L (38-126); Aspartate Aminotransferase 31 IU/L (14-36); BUN Creatinine Ratio 25.4 (6-22); Bilirubin Total 0.3 mg/dL (0.2-1.3); Blood Urea Nitrogen 17 mg/dL (7-17); Calcium 9.1 mg/dL (8.4-10.2); Carbon Dioxide 27 mmol/L (22-32); Chloride 105 mmol/L (98-107); Creatine Kinase 142 U/L (30-135); Estimated Glomerular Filt Rate > 60.0 mL/min (>60); Globulin 3.7 g/dL (1.7-4.1); Glucose 149 mg/dL (80-110); HEMOLYSIS 16 (0-50); Lipase 260 U/L (23-300); Potassium 4.1 mmol/L (3.4-5.1); Sodium 141 mmol/L (137-145); Total Protein 8.5 g/dL (6.3-8.2)
[2020-06-17 10:43] LABS: Troponin I 0.013 ng/mL (0.01-0.034)
[2020-06-17 10:48] LABS: CKMB % Relative Index 2.3 % (1.5-5.0)
--- NOTE | 2020-06-17 11:11 | PC.NURSE ---
patient describes the pain as constant pressure and tightness. After here a 1/2 hour pain level went from 10-4 without treatment and then from 4-2 after 1 nitroglycerin tablet 2nd nitro given SL
--- NOTE | 2020-06-17 11:26 | DI.CT.S_ITS ---
PROCEDURE: CT ANGIO CHEST ABDOMEN PELVIS INDICATIONS: severe pain, dissection TECHNIQUE: Precontrast 5 mm thick sections acquired from the lung apices to the iliac crests. After the administration of intravenous contrast, 2.5 mm thick sections again acquired from the lung apices to the iliac crests. Maximum intensity projection (MIP) oblique sagittal and coronal reformats were then acquired. For radiation dose reduction, the following was used: automated exposure control. COMPARISON: [facility], CT, CT ABDOMEN PELVIS W CON, 06/28/2018, 17:43. FINDINGS: Image quality: Excellent. AORTA: Aorta demonstrates no evidence of hemodynamically significant stenosis, vascular occlusion, aneurysmal dilation or dissection within the thoracic or abdominal portions. Mild areas of atherosclerotic calcifications are noted. With CHEST: Lungs and pleura: No acute airspace opacities. No pleural effusions or pneumothorax. Central and peripheral airways are patent and normal in caliber. Mediastinum: Heart size is normal. No pericardial effusion. No mediastinal or hilar adenopathy by size criteria. Central pulmonary arteries are normal in size. Esophagus is normal in caliber. No hiatal hernias. Bones and chest wall: No axillary adenopathy by size criteria. Thyroid gland is unremarkable . No suspicious bony lesions. No vertebral body compression fractures. ABDOMEN: Vasculature: Celiac trunk and mesenteric arteries are patent. Renal arteries are also patent. Solid organs: Liver is normal in size and enhancement. Gallbladder has been removed . Biliary system is non dilated. Pancreas enhances normally. Spleen is normal in size and enhancement. No adrenal nodules. Both kidneys are normal in size and enhancement, without hydronephrosis. Peritoneum and bowel: No free fluid or air. Bowel loops are normal in caliber and wall thickness. Nodes and vessels: No retroperitoneal or mesenteric adenopathy by size criteria. Inferior vena cava is normal in morphology. Miscellaneous: Bowel containing ventral hernia without obstruction, incarceration or strangulation. PELVIS: Genitourinary: Bladder wall thickness is normal. Miscellaneous: No inguinal hernias or adenopathy. No ventral hernias. Bones: No suspicious bony lesions. No vertebral body compression fractures. IMPRESSION: 1. Aorta demonstrates no areas of hemodynamically significant stenosis, vascular occlusion, aneurysmal dilation or dissection. 2. No acute visualized intra-abdominal or pelvic process. Dictated by: Charmaine Chance M.D. on 06/17/2020 at 11:56 Approved by: Charmaine Chance M.D. on 06/17/2020 at 12:06
[2020-06-17 12:43] LABS: Troponin I 0.313 ng/mL (0.01-0.034)
[2020-06-17] MEDS: HEPARIN 5,000 UNIT/ML VIAL 5000 UNIT IV (12:57)
[2020-06-17] MEDS: HEPARIN DRIP 25,000 UNIT/500 ML IV.SOLN 20 UNIT IV (12:58)
[2020-06-17 13:23] LABS: COVID19 -Nasal RAPID Negative (Negative)
[2020-06-17] MEDS: ATORVASTATIN 20 MG TABLET 40 MG PO (13:33)
--- NOTE | 2020-06-17 15:13 | PC.NURSE ---
patient had another bout of CP 2/10 and end of tongue pain. i nitro given with good relief. 0/10 pain now. up to the bathroom and voided. No cp occurred . Ready for transport
--- NOTE | 2020-07-07 07:47 | PC.NURSE ---
Heparin stopped in ER and transferred to EMS pump 06/17/20 at 1527
== END 2020-06-17 15:27 | disposition short-term general hospital (02) ==
PROVIDERS: Emergency Provider Emergency Medicine; PCP Physician Assistant
DX: I21.3 ST elevation (STEMI) myocardial infarction of unspecified site (principal); Z95.0 Presence of cardiac pacemaker; Z20.822 Contact with and (suspected) exposure to COVID-19
CPT/HCPCS: 36415; 71045; 71275; 74174; 80053; 82550; 82553; 83690; 84484; 85025; 85610; 85730; 87635; 93005; 96365; 96366; 96375; 99284; 99291; C9803; J1644; Q9967

== ENCOUNTER 2024-03-26 16:40 | Emergency (ER) | payer OTHER, SELFPAY ==
[2018-12-11 21:58] VITALS: BMI 35.5
[2024-03-26 16:45] VITALS: BP 174/81; PULSE 79; RESP 18; TEMP 37; O2SAT 98; BMI 34.3
--- NOTE | 2024-03-26 17:33 | ED_ITS ---
HPI - Skin/Abscess/Foreign Bdy <Arely Terry PA-C - Last Filed: 03/26/24 19:32> General Chief complaint: Skin/Abscess/Foreign Body Stated complaint: lump on belly Time Seen by Provider: 03/26/24 16:54 Source: patient Mode of arrival: Family Vehicle Limitations: no limitations History of Present Illness HPI narrative: 63-year-old female with past medical history [place], status post pacer presents to the ED with 3 days of painful bump on the upper abdomen. Patient states that she had a small lesion like a pimple last year, which got bigger but then spontaneously resolved. Since then, it has remained like a pinpoint the but did not bother the patient. Three days ago patient started noticing that the bump became painful, enlarged, red. Patient states it was very difficult to sleep due to chills, nausea, vomiting. Related Data Home Medications Medication Instructions Recorded Confirmed sertraline 100 mg tablet (Zoloft) 100 mg PO DAILY 11/29/17 12/11/18 trazodone 100 mg tablet 150 mg PO DAILY 06/28/18 12/11/18 lidocaine 5 % topical patch 2 patch topical Q24H PRN Pain 12/11/18 12/11/18 (Lidoderm) (Scale Score 1-3) Allergies Allergy/AdvReac Type Severity Reaction Status Date / Time levofloxacin AdvReac Severe Agitated Verified 03/26/24 16:44 miconazole [From Monistat 7] AdvReac rash Verified 03/26/24 16:44 Review of Systems <Arely Terry PA-C - Last Filed: 03/26/24 19:32> Constitutional Constitutional: Denies chills, Denies fatigue, Denies fever(s), Denies frequent falls, Denies lethargy and Denies weakness Eyes Eyes: Denies change in vision, Denies eye discharge, Denies irritation and Denies loss of vision ENT Ears, Nose, Mouth, and Throat: Denies change in voice, Denies dizziness, Denies neck pain, Denies sore throat and Denies throat swelling Cardiovascular Cardiovascular: Denies chest pain, Denies irregular heart rhythm, Denies lightheadedness, Denies palpitations, Denies dyspnea, Denies dyspnea on exertion and Denies orthopnea Respiratory Respiratory: Denies cough, Denies dyspnea, Denies dyspnea on exertion and Denies wheezing Gastrointestinal Gastrointestinal: Denies abdominal pain, Denies change in bowel habits, Denies diarrhea, Denies nausea and Denies vomiting Musculoskeletal Musculoskeletal: Denies neck pain and Denies numbness Integumentary/Breasts Skin/Breast: Denies pruritus, Denies erythema, Denies rash and Reports wounds Comments: Wound on upper abdomen Neurologic Neurologic: Denies behavioral changes, Denies confusion, Denies dizziness, Denies frequent falls, Denies loss of vision, Denies numbness and Denies weakness Psychiatric Psychiatric: Denies anxiety, Denies behavioral changes, Denies confusion, Denies depression, Denies homicidal ideation and Denies suicidal ideation Endocrine Endocrine: Denies fatigue, Denies flushing and Denies palpitations Hematologic/Lymphatic Hematologic/Lymphatic: Denies easy bruising Allergic/Immunologic Allergic/Immunologic: Denies urticaria, Denies throat swelling and Denies wheezing Patient History <Arely Terry PA-C - Last Filed: 03/26/24 19:32> Medical History (Updated 03/26/24 @ 17:30 by Arely Terry PA-C) Obesity (BMI 30-39.9) Diverticulosis Depression Hypercholesterolemia Surgical History Perforated diverticulum Status post colon resection Status post tubal ligation Status post cholecystectomy Social History household members: children and friend(s) Smoking Status: Former smoker alcohol intake: current Smoking Status: Former smoker tobacco type: cigarettes alcohol intake frequency: holidays/special occasions only Exam <Arely Terry PA-C - Last Filed: 03/26/24 19:32> Narrative Exam Narrative: Const General:?cooperative, healthy appearing and comfortable [facility] Head:?normal to inspection Ears:?hearing grossly normal bilaterally Nose:?external nose normal Face and sinus:?normal facial exam and sinuses nontender Mouth:?oral mucosae normal Throat:?posterior oropharynx normal Eyes General:?appearance normal, both eyes and all related structures Neck Neck:?normal visual inspection and no lymphadenopathy noted Resp Effort & Inspection:?normal respiratory effort Auscultation:?clear to auscultation bilaterally Cardio Rate:?regular rate Rhythm:?regular rhythm Integumentary There is a fluctuant, indurated abscess on the right upper abdomen. There is overlying erythema. Exquisitely tender to touch. Neuro General:?patient alert, patient awake and patient oriented x3 Initial Vital Signs Initial Vital Signs: Vital Signs Temperature 98.6 F 03/26/24 16:45 Pulse Rate 79 03/26/24 16:45 Respiratory Rate 18 03/26/24 16:45 Blood Pressure 174/81 H 03/26/24 16:45 Pulse Oximetry 98 03/26/24 16:45 Oxygen Delivery Method Room Air 03/26/24 16:45 <Charlotte Carney MD - Last Filed: 04/02/24 18:21> Initial Vital Signs Initial Vital Signs: Vital Signs Temperature 98.6 F 03/26/24 16:45 Pulse Rate 79 03/26/24 16:45 Respiratory Rate 18 03/26/24 16:45 Blood Pressure 174/81 H 03/26/24 16:45 Pulse Oximetry 98 03/26/24 16:45 Oxygen Delivery Method Room Air 03/26/24 16:45 Procedures <Arely Terry PA-C - Last Filed: 03/26/24 19:32> Abscess I/D I&D #1: Site: abdomen Side (if applicable): right Local Anesthetic: lidocaine 1% Amount of anesthesia used (mL): 6 Technique: incised with #11 blade Amount of fluid expressed (mL): 1 Irrigation: No Packing used?: iodoform Course <Arely Terry PA-C - Last Filed: 03/26/24 19:32> Orders Ordered: Discontinued Medications Ibuprofen (Ibuprofen 400 Mg Tablet) 800 mg PO NOW ONE Stop: 03/26/24 17:26 Last Admin: 03/26/24 17:40 Dose: 800 mg Documented By: LITO Vital Signs Vital signs: Vital Signs - 8 hr 03/26/24 16:45 03/26/24 17:45 Temperature 98.6 F Pulse Rate 79 77 Respiratory Rate 18 18 Blood Pressure 174/81 H 164/80 H Pulse Oximetry 98 99 Oxygen Delivery Method Room Air Room Air <Charlotte Carney MD - Last Filed: 04/02/24 18:21> Orders Ordered: Discontinued Medications Ibuprofen (Ibuprofen 400 Mg Tablet) 800 mg PO NOW ONE Stop: 03/26/24 17:26 Last Admin: 03/26/24 17:40 Dose: 800 mg Documented By: LITO Vital Signs Vital signs: Vital Signs - 8 hr 03/26/24 16:45 03/26/24 17:45 Temperature 98.6 F Pulse Rate 79 77 Respiratory Rate 18 18 Blood Pressure 174/81 H 164/80 H Pulse Oximetry 98 99 Oxygen Delivery Method Room Air Room Air MDM - Skin/Abscess/Foreign Bdy <Arely Terry PA-C - Last Filed: 03/26/24 19:32> MDM Narrative Medical decision making narrative: 63-year-old female with past medical history [place], status post pacer presents to the ED with 3 days of painful bump on the upper abdomen. Physical exam is most consistent with abscess with fluctuance and induration. I and D was performed, wound culture obtained. Iodoform packing inserted. Patient advised to have wound re-evaluated at a walk-in clinic or by her PCP in 24-48 hours. She may also return to the ED. patient was prescribed antibiotics due to overlying erythema. ED return precautions were discussed with patient. Patient verbalized understanding. Medical records reviewed: Yes Discharge Plan Departure Patient Disposition: Home Clinical Impression: Abscess Instructions: DI for Skin Abscess Activity Restrictions/Additional Instructions: You were evaluated in the ED today for a wound on your abdomen, which is an abscess. The abscess was incised and drained and a wick was put in for continued drainage. It is important that you follow-up with your PCP or walk-in clinic in the next 24-48 hours to recheck the wound, changed the wick as needed. You were also being prescribed antibiotics for an overlying skin infection. Please take those as prescribed. Return to the ED if you have worsening symptoms. Prescriptions: No Action sertraline [Zoloft] 100 mg Tablet 100 mg PO DAILY trazodone 100 mg Tablet 150 mg PO DAILY lidocaine [Lidoderm] 5 % adhesive patch,medicated 2 patch TOP Q24H PRN (Reason: Pain (Scale Score 1-3)) Rx Instructions: leave 1-2 patches on most painful area for 12 hrs daily Referrals: Lexie Melvin PA-C [Primary Care Provider] - Stand Alone Forms: Patient Portal/API/Survey ED Sign-out <Charlotte Carney MD - Last Filed: 04/02/24 18:21> Cosign ED Attending Cosashleyature Attestation: I did not see this patient. I was available all times for consultation.
[2024-03-26] MEDS: IBUPROFEN 400 MG TABLET 800 MG PO (17:40)
[2024-03-26 17:45] VITALS: BP 164/80; PULSE 77; RESP 18; O2SAT 99
== END 2024-03-26 17:45 | disposition home or self-care (01) ==
PROVIDERS: Emergency Provider Student in an Organized Health Care Education/Training Program; PCP Physician Assistant
DX: L02.211 Cutaneous abscess of abdominal wall (principal)
CPT/HCPCS: 10060; 99283

== ENCOUNTER → 2024-05-24 07:48 | Outpatient (CLI) | payer OTHER, SELFPAY ==
[2018-12-11 21:58] VITALS: BMI 35.5
[2024-05-24 10:08] LABS: Influenza A - CEPHEID Flu A NEGATIVE (NEGATIVE); Influenza B - CEPHEID Flu B NEGATIVE (NEGATIVE); Respiratory Syncytial Virus Negative (Negative)
[2024-05-24 10:10] LABS: COVID-19 CEPHEID 4-PLEX PCR Negative (Negative)
== END ==
PROVIDERS: PCP Physician Assistant; Referring Provider Nurse Practitioner Family; Visit Provider Nurse Practitioner Family
DX: J02.9 Acute pharyngitis, unspecified (principal); R05.9 Cough, unspecified
CPT/HCPCS: 0241U; 87070

== ENCOUNTER 2025-03-25 17:19 | Emergency (ER) | payer SELFPAY ==
[2018-12-11 21:58] VITALS: BMI 35.5
[2025-03-25 17:26] VITALS: BP 131/62; PULSE 99; RESP 17; TEMP 37; O2SAT 100; BMI 37.8
--- NOTE | 2025-03-25 17:33 | DI.RAD.S_ITS ---
PROCEDURE: XR CHEST 2V INDICATIONS: cough TECHNIQUE: 2 views of the chest were acquired. COMPARISON: [facility], CR, XR CHEST 1V, 06/17/2020, 10:15. [facility], CR, XR CHEST 1V, 12/11/2018, 18:21. FINDINGS: Surgical changes and devices: Left pacemaker. Right shoulder anchors. Clips in the left upper abdomen. Lungs and pleura: Lungs are clear. No pleural effusions or pneumothorax. Mediastinum: Mediastinal contours are normal. Heart size is normal. Bones and chest wall: No suspicious bony abnormalities. Soft tissues appear unremarkable. IMPRESSION: No acute cardiopulmonary abnormality is seen. Dictated by: Gen Pena M.D. on 03/25/2025 at 18:38 Approved by: Gen Pena M.D. on 03/25/2025 at 18:38
[2025-03-25 18:34] LABS: Coronavirus NL 63 Not Detected (Not Detect); SARS- CoV-2 Not Detected (Not Detecte)
--- NOTE | 2025-03-25 19:04 | ED_ITS ---
HPI - SOB/Dyspnea General Chief Complaint: Shortness of Breath/Dyspnea Stated Complaint: sick 5 days, SOB, chest & Abd pn from cough Time Seen by Provider: 03/25/25 17:44 Source: patient Mode of arrival: Family Vehicle Limitations: no limitations History of Present Illness HPI Narrative: 64-year-old female presents to the ED with URI symptoms for 5 days. Patient complains of a low-grade temperature, cough, chills, sinus pressure. Patient has been taking guaifenesin pills and Aleve. Patient complains of her chest hurting due to the coughing. Patient is breathing comfortably. No nausea, vomiting, abdominal pain, dysuria, lightheadedness, dizziness, syncope. Patient does not want to take Tessalon Perles since the last time she took them, she ended up with a pneumonia. Related Data Home Medications ?Medication ?Instructions ?Recorded ?Confirmed levothyroxine 150 mcg tablet mcg PO DAILY 05/24/2408/09 metformin 500 mg tablet,extended mg PO 05/24/24 release 24 hr Previous Rx's ?Medication ?Instructions ?Recorded nystatin 100,000 unit/gram topical 1 applic topical TI D #60 grams 07/19/24 powder Allergies Allergy/AdvReac Type Severity Reaction Status Date / Time sulfamethoxazole (From AdvReac Severe Seizure Verified 03/25/25 17:26 Bactrim) trimethoprim (From Bactrim) AdvReac Severe Seizure Verified 03/25/25 17:26 miconazole (From Monistat 7) AdvReac rash Verified 03/25/25 17:26 Review of Systems Constitutional Constitutional: Denies chills, Denies fatigue, Reports fever(s), Denies frequent falls, Denies lethargy and Denies weakness Eyes Eyes: Denies change in vision, Denies eye discharge, Denies irritation and Denies loss of vision ENT Ears, Nose, Mouth, and Throat: Denies change in voice, Denies dizziness, Reports nasal congestion, Reports nasal discharge, Denies neck pain, Reports sinus pressure, Denies sore throat and Denies throat swelling Cardiovascular Cardiovascular: Denies chest pain, Denies irregular heart rhythm, Denies lightheadedness, Denies palpitations, Denies dyspnea, Denies dyspnea on exertion and Denies orthopnea Respiratory Respiratory: Reports cough, Denies dyspnea, Denies dyspnea on exertion and Denies wheezing Gastrointestinal Gastrointestinal: Denies abdominal pain, Denies change in bowel habits, Denies diarrhea, Denies nausea and Denies vomiting Musculoskeletal Musculoskeletal: Denies neck pain and Denies numbness Integumentary/Breasts Skin/Breast: Denies pruritus, Denies erythema, Denies rash and Denies wounds Neurologic Neurologic: Denies behavioral changes, Denies confusion, Denies dizziness, Denies frequent falls, Denies loss of vision, Denies numbness and Denies weakness Psychiatric Psychiatric: Denies anxiety, Denies behavioral changes, Denies confusion, Denies depression, Denies homicidal ideation and Denies suicidal ideation Endocrine Endocrine: Denies fatigue, Denies flushing and Denies palpitations Hematologic/Lymphatic Hematologic/Lymphatic: Denies easy bruising Allergic/Immunologic Allergic/Immunologic: Denies urticaria, Denies throat swelling and Denies wheezing Patient History Medical History Obesity (BMI 30-39.9) Diverticulosis Depression Hypercholesterolemia Surgical History Perforated diverticulum Status post colon resection Status post tubal ligation Status post cholecystectomy Social History household members: children and friend(s) Smoking Status: Former smoker alcohol intake: current Smoking Status: Former smoker tobacco type: cigarettes alcohol intake frequency: holidays/special occasions only Exam Narrative Exam Narrative: Const General:?cooperative, healthy appearing and comfortable [facility] Head:?normal to inspection Ears:?hearing grossly normal bilaterally Nose:?external nose normal Face and sinus:?normal facial exam and sinuses nontender Mouth:?oral mucosae normal Throat:?posterior oropharynx normal Eyes General:?appearance normal, both eyes and all related structures Neck Neck:?normal visual inspection and no lymphadenopathy noted Resp Effort & Inspection:?normal respiratory effort Auscultation:?clear to auscultation bilaterally Cardio Rate:?regular rate Rhythm:?regular rhythm Neuro General:?patient alert, patient awake and patient oriented x3 Initial Vital Signs Initial Vital Signs: Vital Signs Temperature 98.6 F 03/25/25 17:26 Pulse Rate 99 H 03/25/25 17:26 Respiratory Rate 17 03/25/25 17:26 Blood Pressure 131/62 03/25/25 17:26 Pulse Oximetry 100 03/25/25 17:26 Oxygen Delivery Method Room Air 03/25/25 17:26 Course Orders Ordered: ED Orders 03/25/25 17:33 CXR [XR chest 2V] Stat 03/25/25 17:34 Respiratory Panel (Film Array) Stat Vital Signs Vital signs: Vital Signs - 8 hr 03/25/25 17:26 Temperature 98.6 F Pulse Rate 99 H Respiratory Rate 17 Blood Pressure 131/62 Pulse Oximetry 100 Oxygen Delivery Method Room Air MDM - SOB/Dyspnea Lab Data Labs: Lab Results 03/25/25 Range/Units 17:34 Chlamy pneumoniae PCR Not detected (Not Detect) Adenovirus (PCR) Not detected (Not Detect) B. pertussis DNA (PCR) Not detected (Not Detect) B.parapertussis DNA PCR Not detected (Not Detecte) Coronavirus OC43 (PCR) Not detected (Not Detect) Coronavirus HKU1 (PCR) Not detected (Not Detect) Coronavirus 229E (PCR) Not detected (Not Detect) SARS-CoV-2 (PCR) Not detected (Not Detecte) Coronavirus NL63 (PCR) Not detected (Not Detect) Human Metapneumovir PCR Not detected (Not Detect) Influenza Type A (PCR) Not detected (Not Detect) Influenza Type B (PCR) Not detected (Not Detect) M. pneumoniae (PCR) Not detected (Not Detect) Parainfluenza 1 (PCR) Not detected (Not Detect) Parainfluenza 2 (PCR) Not detected (Not Detect) Parainfluenza 3 (PCR) Not detected (Not Detect) Parainfluenza 4 (PCR) Not detected (Not Detect) RSV (PCR) Detected H (Not Detect) Entero/Rhino (PCR) Not detected (Not Detect) MDM Narrative Medical decision making narrative: 64-year-old female presents to the ED with URI symptoms for 5 days. Will obtain respiratory panel, chest x-ray, re-evaluate. Chest x-ray was without acute findings. Respiratory panel was positive for RSV. Recommend supportive care with [id number] medications, Tylenol, ibuprofen. Recommend follow-up with PCP as soon as possible. ED return precautions discussed with patient. Patient verbalized understanding. Medical records reviewed: Yes Discharge Plan Departure Patient Disposition: Home Clinical Impression: RSV infection Qualifiers: Laterality: unspecified laterality Instructions: DI for Respiratory Syncytial Virus -- Adults Activity Restrictions/Additional Instructions: You were evaluated in the ED today for a cough and fever. The respiratory panel was positive for the RSV virus. Chest x-ray was normal. You do not have a pneumonia. You may continue taking [id number] medications, plenty of hydration, Tylenol, ibuprofen. Return to the ED if you have worsening symptoms, chest pain, shortness of breath. Prescriptions: No Action metformin 500 mg tablet extended release 24 hr PO levothyroxine 150 mcg tablet PO DAILY nystatin 100,000 unit/gram powder 1 applic topical TID Qty: 60 1RF Rx Instructions: Apply to affected areas 3 times daily until healing Referrals: Lexie Melvin PA-C [Primary Care Provider, Medical] Stand Alone Forms: Patient Portal/API
[2025-03-25 19:46] VITALS: BP 172/82; PULSE 92; RESP 20; TEMP 37.6; O2SAT 94
== END 2025-03-25 19:50 | disposition home or self-care (01) ==
PROVIDERS: Emergency Provider Student in an Organized Health Care Education/Training Program; PCP Physician Assistant
DX: B33.8 Other specified viral diseases (principal); B97.4 Respiratory syncytial virus as the cause of diseases classified elsewhere; R06.02 Shortness of breath; R05.9 Cough, unspecified
CPT/HCPCS: 71046; 87633; 99282; 99283; 99284